=== PATIENT | female | born 1970 ===

== ENCOUNTER 2025-03-15 09:16 | Emergency (ER) | payer MEDICAID, SELFPAY ==
[2025-03-15 09:17] VITALS: BP 138/71; PULSE 78; RESP 18; TEMP 36.8; O2SAT 97; BMI 34.2
--- NOTE | 2025-03-15 09:28 | ED.SKABFB ---
HPI - Skin/Abscess/Foreign Bdy General Chief complaint: Skin/Abscess/Foreign Body Stated complaint: Rash Time Seen by Provider: 03/15/25 09:27 History of Present Illness ED Provider: Crys oCrnell PA-C HPI narrative: Well-appearing 54-year-old female presenting to the emergency department today for evaluation of rash on her body that started greater than 12 hours ago. Patient is not certain what could have caused this but does report it pretty much starting in the same area of limbs and trunk at the same time. She denies any new environmental exposures and no new medications the last 30 days. At no point did patient develop any lip or tongue swelling, difficulty with breathing, shortness of breath, wheezing, GI distress, or appear to be flushing. She describes the rash is very pruritic sparing her face soles and palms of her feet and is not on the groin or buttock region. Every time she itches it the rash seems to get larger. She has never experienced anything like this before in the past. She has not tried to treat in any way either. She notices he is making it worse. Patient also arrives with her significant other who is being seen separately for a different rash pattern. Onset (ago): day(s) Tetanus up to date: yes Severity: mild Quality: pruritic Pain Consistency: intermittent Context: none Associated symptoms: denies other symptoms Treatments prior to arrival: none Related Data Allergies Allergy/AdvReac Type Severity Reaction Status Date / Time No Known Allergies Allergy Verified 03/15/25 09:20 Review of Systems Review of Systems: Yes all other systems are reviewed and are negative PMFSH Past Medical History Attestation statement: The following information was validated with the patient. Source: nursing notes reviewed Social History Social History Alcohol intake: current Alcohol intake frequency: holidays/special occasions only Alcohol type: hard liquor Smoked in Last 30 Days: No Use of substances other than those prescribed or required for medical reasons: No Advance Directives: No Advance Directives Information Provided: Yes Do you have a plan to hurt others: No Plan Patient : No Physical Exam Vital Signs: Vital Signs: Last Vital Signs Temp 98.3 F 03/15/25 09:52 Pulse 77 03/15/25 09:52 Resp 16 03/15/25 09:52 BP 132/89 03/15/25 09:52 Pulse Ox 95 03/15/25 09:52 O2 Del Method Room Air 03/15/25 09:52 BMI result Body Mass Index 34.2 Hive-like rash on patient's limb and lower abdominal region appearing in wheals different sizes well-demarcated irregular borders no pustules vesicles red streaking or tenderness, spares her back buttock palms or soles of the feet as well as her face and scalp Const: General: cooperative, healthy appearing, comfortable, no acute distress, well developed, alert, awake and Physically active Nutritional Appearance: obese Orientation/consciousness: patient oriented x3 Limitations: no limitations HEENT: Head: Yes normal to inspection Ears: hearing grossly normal bilaterally, TM's normal bilaterally and mastoids normal General nose exam: Normal external nose present, Normal nares present, No nasal polyps present and Normal nasal mucous membranes and turbinates present Face and sinus: Yes normal facial exam Mouth: Normal oral and palatal mucosa present, lip normal, tongue normal, Normal salivary glands and ducts present, oropharynx normal and moist mucous membranes Teeth and gingiva: dentition normal Throat: Yes posterior oropharynx normal, Yes tonsils normal and Yes uvula midline Eyes: General: appearance normal, both eyes and all related structures Alignment and Position: alignment normal Periorbital: periorbital findings normal Eyelids: Yes eyelids normal Conjunctivae: conjunctivae normal Sclerae: sclerae normal Corneas: corneas normal EOM: EOMs intact bilaterally Neck: Neck: Yes normal visual inspection, Yes full ROM and Yes no lymphadenopathy Lymphatic: no lymphadenopathy noted Resp: Effort & Inspection: normal respiratory effort and able to speak in complete sentences Auscultation: clear to auscultation bilaterally Cardio: Jugular venous distension: no JVD Rate: regular rate Rhythm: regular rhythm Heart sounds: S1 normal heart sound present and S2 normal heart sound present Peripheral pulses: Peripheral pulses 2+ throughout GI: Inspection: Yes normal to inspection Auscultation: normal bowel sounds Rectal Exam - Female: deferred Neuro: General: patient oriented x3 Medical Decision Making Medical Decision Making MDM Narrative: Well-appearing 52-year-old female presenting today for 1 day of diffuse urticaria. Pt does not know of any new agents that they could have contacted through? clothes/other contaminants or through ingestion with medication/food products. Negative for respiratory symptoms such as wheezing, SOB/respiratory distress Negative for cardiovascular signs such as hypotension Negative for GI symptoms such as nausea and diarrhea Low concern for cellulitis. Not anaphylactic. Unlikely drug reaction, toxic shock syndrome, contact dermatitis. PO prednisone, EPI IM and Pred/benadryl IM not indicated. Discussed disease process therapeutic interventions of you regarding itself as antihistamines have been proven to be first-line for this she was given Benadryl while here and had been advised to continue this at home DC home with return precautions. Recommended antihistamines 3x a day until its been 24 hours with no rash. Patient was d/c to home stable. Return precautions discussed patient was discharged home stable Differential Diagnosis Differential Diagnoses: The differential diagnosis associated with the presentation includes see MDM Admission/Observation Patient would have been admitted to the hospital had her work up had any findings where hospital admission was appropriate and her clinical presentation warranted hospital admission. Independent Historian Clinical information obtained from an independent historian. History obtained from or confirmed by: Other (significant other) Prescription Management would have considered PO prednisone had this been anaphylaxis, contact dermatitis or angioedema Chronic Conditions Patient?s care impacted by: Other (obesity) Discharge Plan Discharge Clinical Impression: Urticaria Patient Disposition: Home, Self-Care Instructions: Urticaria (ED) Additional Instructions: You were seen in the emergency department today for a rash on your body. This is most consistent with a rash eruption known as Urticaria. You were given a dose of Benadryl while here it is recommended to take this 2 to 3 times a day until it has been 24 hours but no hives see below for additional details. If Benadryl is too sedating or drowsy for you you can do a nondrowsy antihistamine such as Claritin Zyrtec Vesna or Xyzal and in the morning and afternoon and reserve Benadryl for night if needed. Significant sedation and impairment of performance (eg, fine motor skills, driving skills, and reaction times) occur in more than 20 percent of patients. Anticholinergic side effects include dry mouth, diplopia, blurred vision, urinary retention, or vaginal dryness. This is most prominent in Benadryl. Benadryl (Diphenhydramine): Adults and Children 12 years and older: 25 to 50 mg every 4 to 6 hours as needed. Cetirizine (Zyrtec): Adults and Children 12 years and older: 10 to 20 mg twice daily as needed Claritin (loratidine) Adults and children 6 years and older: 10 -20 mg once daily as needed ( twice daily in adults if needed) Vesna (fexofedadine) Adults and Children ages 12 and older: 180 mg daily as needed (adults may be twice a day) ?Urticaria? is the medical term for ?hives?. Hives are patches of skin that are usually very itchy. The patches look puffy or raised compared with the rest of the skin. Hives might look reddish in color on light-colored skin. The color changes can be hard to see on darker skin. Hives can happen because of an allergy or when the body's immune system is activated for another reason. In most cases, hives come and go within a few hours. But they can show up again and again in some people. Some people who get hives also get a condition called angioedema. Angioedema is puffiness or swelling. It usually happens in the face, eyelids, ears, mouth, hands, feet, or genitals. Why did I get hives? If you just got hives for the first time, you might have a new allergy to something. People can get hives because of allergies to: ? Medicines, such as antibiotics or aspirinhttps://www.[employer]/contents/qrhkqwt-vqmprhz-mmat-information?search=benadryl%20dosing%20pediatric&zzsrvHnr=23998&source=see_link ? Foods, such as eggs, nuts, fish, or shellfish ? Something they touched, such as a plant, animal saliva, or latex ? Insect stings If your hives are caused by an allergy, you need to avoid whatever you are allergic to. You might not need treatment. Hives usually go away in a few days or weeks, even if you do not get treated. If you do, the first step is to figure out if anything triggered the hives. If so, you need to avoid that trigger. Hives can also be caused or triggered by infections, such as with a virus or bacteria. In this case, the hives happen because your immune system was activated to fight the infection. Hives can appear days or weeks after an infection. In some cases, you might remember being sick recently. But hives can also happen with mild infections that you might not have noticed. Hives of this type usually only last a few days. There are also physical triggers for hives, such as: ? Having cold air, water, or sun on the skin ? Exercise ? Having something press or vibrate against the skin ? Changes in body temperature (such as when you cool down after a hot shower or a work out) It is often not possible to tell what triggered hives. In patients with mild symptoms of new-onset urticaria, we suggest treatment with a nonsedating H1 antihistamine alone. Examples examples of H1 antihistamines include cetirizine (Zyrtec), loratidine (Claritin)? fexofenadine (Vesna), and diphenhydramine (Benadryl). Some patients may require higher than standard doses (eg, cetirizinehttps://www.[employer]/contents/upzxabgjbe-auvp-cswxrnbozaj?search=benadryl%20dosing%20pediatric&elfigXxo=9896&source=see_link 10 mg twice daily). In patients at low risk of complications from anticholinergic side effects (ie, healthy adults), use of a sedating H1 antihistamine at bedtime and a non-sedating H1 antihistamine during the day is a reasonable alternative. People may experience drowsiness at these higher doses. Caution is therefore warranted until effects upon the individual are understood. The higher doses may have better efficacy in some adults, although this has not been conclusively demonstrated. As you have no evidence of angioedema otherwise known as lip or tongue swelling or anaphylaxis life-threatening allergic reaction oral steroids have not been proven to shorten the course of treatment or a make any significant difference therefore deferred. Two-thirds of cases of urticaria (with or without angioedema) prove to be self-limited (not requiring intervention or treatment), resolving in days to a few weeks. Urticarial outbreaks that continue to occur after six weeks are classified as chronic. Patients with difficult to control symptoms that are persistent can be referred to an allergy or neuro psych sales specialist (if you require insurance referral, this unfortunately can only be placed by your primary care provider). Call for emergency help right away call if you suddenly get hives or swelling and also have any of these symptoms: ? Trouble breathing, a hoarse voice, or wheezing (hearing a whistling sound when you breathe) ? Swelling, especially in the mouth or throat ? Throat tightness ? Feeling dizzy or nearly fainting Stand Alone Forms: Work/School Release Print Language: Hebrew
[2025-03-15 09:52] VITALS: BP 132/89; PULSE 77; RESP 16; TEMP 36.8; O2SAT 95
--- NOTE | 2025-03-15 09:54 | PC.NURSE ---
Patient presents to ED c/o red rash on arms, torso, low back, and upper thighs. Rash is red and warm, burning pain rated 2/10. Patient denies SOB. Rash started last night when patient was at home. Patient denies using new medications, soaps, and lotions. NKA. Patient denies taking any OTC medication for relief. VSS and up to date. Provider in to see patient. Plan of care on going.
[2025-03-15 10:53] VITALS: BP 132/89; PULSE 77; RESP 16; TEMP 36.8; O2SAT 95
== END 2025-03-15 10:53 | disposition home or self-care (01) ==
PROVIDERS: Emergency Provider Emergency Medicine Emergency Medical Services
DX: L50.0 Allergic urticaria (principal)
CPT/HCPCS: 99283; 99284

== ENCOUNTER 2025-06-06 22:07 | Emergency (ER) | payer MEDICAID, SELFPAY ==
[2025-06-06 22:18] VITALS: BP 161/90; PULSE 71; RESP 16; TEMP 36.8; O2SAT 95; BMI 38.4
[2025-06-06 23:21] LABS: MANUAL DIFF FLAG NO
[2025-06-06 23:22] LABS: Hematocrit 36.9 % (37.0-47.0); Mean Corpuscular Volume 97.4 fL (80.0-98.0); NRBC Pct Auto 0.0 /100WBC (0.0-0.2); Red Blood Count 3.79 X10*6/uL (4.20-5.50); White Blood Count 5.7 X10*3/uL (4.8-10.8)
[2025-06-06 23:36] LABS: Alanine Aminotransferase 26 U/L (0-31); Albumin Level 4.7 g/dL (3.5-5.0); Alkaline Phosphatase 52 U/L (39-117); Anion Gap 8 (12-20); Aspartate Amino Transferase 63 U/L (5-31); Blood Urea Nitrogen 11 mg/dL (9-16); Calcium 9.2 mg/dL (8.4-10.2); Carbon Dioxide 39 mmol/L (22-29); Chloride 96 mmol/L (96-108); Creatinine Clr Calc Pharmacy 62.1; Estimated Glomerular Filt Rate 39; Potassium 3.8 mmol/L (3.3-5.1); Sodium 139 mmol/L (135-145); Total Protein 7.7 g/dL (6.5-8.0)
--- NOTE | 2025-06-07 00:24 | ED.FEMALEGU ---
HPI - Female Genitourinary General Chief complaint: Urogenital-Female Stated complaint: 1 month of lowback pain Time Seen by Provider: 06/07/25 00:10 Source: patient Mode of arrival: ambulatory Limitations: no limitations History of Present Illness ED Provider: Dr. Deneen Cornejo HPI Narrative: Patient comes to the emergency room complaining of bilateral lower back pain, worse on the left side of the back radiating towards the left leg. Patient states that it has been going on for about a week. Patient denies any injuries. 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 When patient arrived to triage, she said that she had urinary incontinence. However, when I spoke to the patient, she denies incontinence, states that she has burning and frequency, and she had an episode that she could not get quick enough to the bathroom because of the back pain, but this was not a true episode of incontinence. Patient denies IV drug use Related Data Previous Rx's ?Medication ?Instructions ?Recorded oxycodone 5 mg tablet 5 mg PO Q8H PRN pain #10 tabs 06/07/25 polyethylene glycol 3350 17 17 g PO DAILY PRN laxative effect 06/07/25 gram/dose oral powder (Miralax) #238 grams Allergies Allergy/AdvReac Type Severity Reaction Status Date / Time No Known Allergies Allergy Verified 06/06/25 22:21 Review of Systems Review of Systems: Constitutional : No Weight loss, No Fever, No Chills, No Night Sweats, No Fatigue, No Malaise ENT/Mouth : No Hearing loss, No Ear Pain, No Nasal Congestion, No Sinus Pain, No Hoarseness, No sore throat, No Rhinorrhea, No Swallowing Difficulty Eyes: No Eye Pain, No Swelling, No Redness, No Foreign Body, No Discharge, No Vision Changes Cardiovascular : No Chest Pain, No SOB, No Dyspnea on Exertion, No Orthopnea, No Edema, No Palpitations Respiratory : No Cough, No Sputum, No Wheezing, No Smoke Exposure, No Dyspnea Gastrointestinal : No Nausea, No Vomiting, No Diarrhea, No Constipation, No abdominal Pain, No Hematochezia, No Melena Genitourinary : Complaining of urinary frequency and urgency, no hematuria, no flank pain No Urinary Incontinence, No Urgency, No Urinary Flow Changes, No Hesitancy Musculoskeletal : Complaining of bilateral back pain with a shooting pain running down the left leg., No Myalgias, No Joint Swelling Skin : No Skin Lesions, No rash Neuro : No Weakness, No Numbness, No Paresthesias, No Loss of Consciousness, No Dizziness, No Headache Psych : No Anxiety/Panic, No Depression, No SI/HI/AH/VH, No Social Issues, Heme/Lymph: No Bruising, No Bleeding,No Lymphadenopathy Endocrine : No Polyuria, No Polydipsia, No Temperature Intolerance ON LICENSE OF [facility] Past Medical History Medical History (Updated 06/07/25 @ 00:42 by Deneen Cornejo MD) Sciatica Social History Social History Alcohol intake: current Alcohol intake frequency: holidays/special occasions only Alcohol type: hard liquor Do you have a plan to hurt others: No Plan Physical Exam Exam: Exam: Appearance: Alert. Oriented X3. No acute distress. Eyes: Pupils equal, round and reactive to light. ENT: Pharynx normal. Neck: Normal inspection. Neck supple. No lymph nodes noted. No crepitus CVS: Normal heart rate and rhythm. Pulses normal. Normal S1 and S2 Respiratory: No respiratory distress. Breath sounds normal. No Wheezing. No rales Abdomen: Soft and nontender. No rigidity. No distention. Back: Pain to palpation in the bilateral aspects of the bag. No C-spine/thoracic/lumbar spine tenderness. Patient is able to walk with fairly normal gait, good truncal stability, normal bilateral lower extremity strength. Positive straight leg raise test on the left Skin: Skin warm and dry. Normal skin color. Normal skin turgor. Extremities: No lower extremity edema. No Lacerations. No Rash Neuro: Oriented X 3. No motor deficit. No sensory deficit. Moving all extremities. No slurred speech. CN 2 through 12 grossly intact Psych: calm, cooperative, normal affect Vital Signs: Vital Signs: Last Vital Signs Temp 97.6 F 06/07/25 00:25 Pulse 70 06/07/25 00:25 Resp 20 06/07/25 00:25 BP 141/99 H 06/07/25 00:25 Pulse Ox 96 06/07/25 00:25 O2 Del Method Room Air 06/07/25 00:25 BMI result Body Mass Index 38.4 Course Course Course Narrative: I discussed with the patient that based on physical exam, she likely has sciatica versus herniated discs. Patient states that many years ago she was diagnosed with herniated discs. Patient was given a dose of IM Decadron and a 2nd IM injection of Dilaudid I discussed with the patient that this is not a cure, this is just pain management. Overall, she will need physical therapy. Urinalysis pending Medications Administered Discontinued Medications Generic Name Dose Route Start Last Admin Trade Name Frederic PRN Reason Stop Dose Admin Dexamethasone Sodium Phosphate 4 mg 06/07/25 00:23 06/07/25 00:59 Dexamethasone Sod Phosphate 4 Mg/Ml Vial IM 06/07/25 00:24 4 mg ONCE ONE Administration Hydromorphone HCl 1 mg 06/07/25 00:23 06/07/25 00:59 Hydromorphone Hcl 1 Mg/Ml Syringe IM 06/07/25 00:24 1 mg ONCE ONE Administration Protocol Medical Decision Making Medical Decision Making [facility] Narrative: My interpretation of labs: No significant abnormality being patient's hematology or chemistry Urinalysis shows a small amount of leukocyte esterase and +1 bacteria. Large amount of squamous epithelial cells. However, given that the patient has urinary frequency, we will treat we asked UTI. Patient was given the 1st dose of Macrobid here in the emergency room After the IM pain medication, patient feels much better. Patient understands that she will need to follow-up with the primary care physician as she will need a referral for physical therapy. Cauda equina is not suspected. Patient has no urinary incontinence, normal strength in both extremities Differential Diagnosis Differential Diagnoses: The differential diagnosis associated with the presentation includes (Sciatica, musculoskeletal pain, herniated disc) Admission/Observation Consideration of admission/observation: Escalation of care including admission/observation considered (Given patient's arrival and overall discomfort, observation was considered) Lab Data [facility] Lab Attestation statement: I reviewed the patient's lab results. 06/06/25 23:16 06/06/25 23:16 Labs: Lab Results 06/06/25 06/07/25 Range/Units 23:16 00:24 WBC 5.7 (4.8-10.8) X10*3/uL RBC 3.79 L (4.20-5.50) X10*6/uL Hgb 12.1 (12.0-16.0) g/dl Hct 36.9 L (37.0-47.0) % MCV 97.4 (80.0-98.0) fL MCH 31.9 (27.0-33.0) pg MCHC 32.8 (31.0-35.0) g/dl RDW 13.8 (11.0-16.0) % Plt Count 252 (160-400) X10*3/uL MPV 10.4 (9.4-12.3) fL Immature Gran % (Auto) 0.2 (0.0-0.4) % Neut % (Auto) 62.0 (45-73) % Lymph % (Auto) 29.2 (20-40) % Bennett % (Auto) 3.7 (2-11) % Eos % (Auto) 4.4 H (0-4) % Baso % (Auto) 0.5 (0-2) % Lymph # (Auto) 1.7 (1.2-4.9) X10*3/uL Bennett # (Auto) 0.2 (0.1-1.2) X10*3/uL Eos # (Auto) 0.3 (0.0-0.4) X10*3/uL Baso # (Auto) 0.0 (0.0-0.2) X10*3/uL Abs Immat Gran (auto) 0.01 (0.00-0.03) X10*3/uL Absolute Neuts (auto) 3.5 (2.0-8.3) x10*3/uL Absolute Nucleated RBC 0.000 (0.0-0.012) X10*3/uL Nucleated RBC % (auto) 0.0 (0.0-0.2) /100WBC Sodium 139 (135-145) mmol/L Potassium 3.8 (3.3-5.1) mmol/L Chloride 96 (96-108) mmol/L Carbon Dioxide 39 H (22-29) mmol/L Anion Gap 8 L (12-20) BUN 11 (9-16) mg/dL Creatinine 1.41 H (0.5-1.4) mg/dL Estim Creat Clear Calc 62.1 Estimated GFR 39 Random Glucose 102 (60-115) mg/dL Calcium 9.2 (8.4-10.2) mg/dL Total Bilirubin 0.4 (0.0-1.0) mg/dL AST 63 H (5-31) U/L ALT 26 (0-31) U/L Alkaline Phosphatase 52 (39-117) U/L Total Protein 7.7 (6.5-8.0) g/dL Albumin 4.7 (3.5-5.0) g/dL Urine Color Yellow Urine Appearance Clear Urine pH 6.0 (5.0-9.0) Ur Specific [place] 1.025 (1.005-1.025) Urine Protein 300 (3+) H (Neg-Trace) mg/dL Urine Glucose (UA) Negative (Negative) mg/dL Urine Ketones Trace (Negative) mg/dL Urine Blood Negative (Negative) Urine Nitrite Negative (Negative) Ur Leukocyte Esterase Small (1+) H (Negative) Urine RBC 0-2 (0-2) /HPF Urine WBC 11-20 H (0-5) /HPF Ur Squamous Epith Cells 11-20 (0-2) /HPF Urine Bacteria 1+ (None Seen) Hyaline Casts 0-2 (0-2) /LPF Tests considered The following testing was considered but not selected: Considered ordering a CT scan. However, patient has no symptoms concerning for cauda equina or spinal injury Critical Care Time Critical Care Time Critical Care Time: Yes Total Critical Care Time: 35 Attestation: I have personally provided critical care time. Time includes review of lab data, radiology results, discussion with consultants, and monitoring for potential decompensation. Intervention performed as documented. Discharge Plan Discharge Clinical Impression: Sciatica Patient Disposition: Home, Self-Care Instructions: Sciatica (ED) Additional Instructions: Please follow-up with your primary care physician tomorrow. If you have any worsening or new symptoms, please return to the emergency room or call 911 Prescriptions: New oxycodone 5 mg tablet 5 mg PO Q8H PRN (Reason: pain) Qty: 10 0RF Rx Instructions: Partial Fill upon patient request. polyethylene glycol 3350 [Miralax] 17 gram/dose powder 17 g PO DAILY PRN (Reason: laxative effect) Qty: 238 0RF Print Language: Occitan
[2025-06-07 00:25] VITALS: BP 141/99; PULSE 70; RESP 20; TEMP 36.4; O2SAT 96
--- NOTE | 2025-06-07 01:04 | PC.NURSE ---
pt medicated per mar.
[2025-06-07 02:01] VITALS: BP 141/99; PULSE 70; RESP 20; TEMP 36.4; O2SAT 96
--- NOTE | 2025-06-07 02:06 | PC.NURSE ---
reviewed discharge instructions with pt. pt verbalized understanding, no sign of distress.
== END 2025-06-07 02:06 | disposition home or self-care (01) ==
PROVIDERS: Emergency Provider Emergency Medicine
DX: M54.42 Lumbago with sciatica, left side (principal); M54.41 Lumbago with sciatica, right side; M79.605 Pain in left leg; Z79.899 Other long term (current) drug therapy
CPT/HCPCS: 36415; 80053; 81001; 85025; 87086; 96372; 99284; J1100; J1171

== ENCOUNTER 2025-08-01 23:32 | Emergency (ER) | payer MEDICAID, SELFPAY ==
--- NOTE | 2025-08-01 | ECG_ITS ---
Test Reason : PALPITATIONS Blood Pressure : */* mmHG Vent. Rate : 82 BPM Atrial Rate : 82 BPM P-R Int : 154 ms QRS Dur : 70 ms QT Int : 312 ms P-R-T Axes : 65 15 45 degrees QTcB Int : 364 ms Normal sinus rhythm Low voltage QRS Nonspecific T wave abnormality Abnormal ECG No previous ECGs available Referred By: Generic ED Physician Electronically Signed By: ASHWINI DECKER
[2025-08-01 23:38] VITALS: BP 142/86; PULSE 78; RESP 20; TEMP 36.7; O2SAT 98; BMI 35.7
[2025-08-01 23:58] LABS: MANUAL DIFF FLAG NO
[2025-08-02 00:01] LABS: Hematocrit 38.4 % (37.0-47.0); Hemoglobin 12.2 g/dl (12.0-16.0); Imm Gran Abs Auto 0.01 X10*3/uL (0.00-0.03); Imm Gran Pct Auto 0.1 % (0.0-0.4); Lymphocytes Absolute Auto 2.8 X10*3/uL (1.2-4.9); Mean Corpuscular HGB Conc 31.8 g/dl (31.0-35.0); Mean Corpuscular Hemoglobin 31.5 pg (27.0-33.0); Mean Corpuscular Volume 99.2 fL (80.0-98.0); NRBC Abs Auto 0.000 X10*3/uL (0.0-0.012); NRBC Pct Auto 0.0 /100WBC (0.0-0.2); Platelet Count 276 X10*3/uL (160-400); Red Blood Count 3.87 X10*6/uL (4.20-5.50); White Blood Count 6.9 X10*3/uL (4.8-10.8)
[2025-08-02 00:14] LABS: Alanine Aminotransferase 23 U/L (0-31); Albumin Level 4.6 g/dL (3.5-5.0); Alkaline Phosphatase 51 U/L (39-117); Anion Gap 13 (12-20); Aspartate Amino Transferase 70 U/L (5-31); Blood Urea Nitrogen 18 mg/dL (9-16); Calcium 9.8 mg/dL (8.4-10.2); Carbon Dioxide 32 mmol/L (22-29); Chloride 99 mmol/L (96-108); Creatinine Clr Calc Pharmacy 72.5; Estimated Glomerular Filt Rate 49; Potassium 4.1 mmol/L (3.3-5.1); Sodium 140 mmol/L (135-145); Total Protein 7.9 g/dL (6.5-8.0)
[2025-08-02 00:44] VITALS: BP 140/104; PULSE 78; RESP 16; TEMP 36.7; O2SAT 96
[2025-08-02 01:31] LABS: Resp Syncy Virus RNA Qual PCR NEGATIVE (Negative); SARS COV2 PCR INHOUSE NEGATIVE (Negative)
[2025-08-02 02:05] VITALS: RESP 18
[2025-08-02 02:08] VITALS: BP 151/97; RESP 18
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
[2025-08-02 04:23] VITALS: BP 125/80; PULSE 67; RESP 18; TEMP 36.6; O2SAT 94
[2025-08-02 05:46] LABS: Free T4 (Free Thyroxine) < 0.42 ng/dL (0.71-1.85)
[2025-08-02 06:38] VITALS: BP 128/90; PULSE 78; RESP 15; TEMP 36.7; O2SAT 98
== END 2025-08-02 06:39 | disposition home or self-care (01) ==
PROVIDERS: Physician Assistant; Emergency Provider Emergency Medicine
DX: B34.9 Viral infection, unspecified (principal); E03.9 Hypothyroidism, unspecified
CPT/HCPCS: 36415; 80053; 84439; 84443; 85025; 87637; 93005; 96361; 96374; 96375; 99284; 99285; J1885

== ENCOUNTER → 2025-08-01 23:49 | Outpatient (BNV) | payer MEDICAID, SELFPAY | PROVIDERS: Emergency Provider Emergency Medicine; Visit Provider Internal Medicine | DX: R94.31 Abnormal electrocardiogram [ECG] [EKG] (principal); R00.2 Palpitations | CPT/HCPCS: 93010 ==

== ENCOUNTER 2025-08-27 14:30 | Emergency (ER) | payer MEDICAID, SELFPAY ==
--- OUTSIDE RECORDS SUMMARY | 2025-08-24 14:15 | XMS_ITS | Encounter Summary ---
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 Name Role Phone Unavailable Primary Care Provider Unavailabl e Reason for Referral * (Routine) - Authorized Specialty Diagnoses / Procedures Referred By Contac t Referred To Contact Diagnoses Encounter for immunization Procedures FLU VACCINE TRIVALENT [phone] (Fluarix) 19 yrs + Fatmata Kelley MD [address] [place] [phone] Phone: tel: fax: Referral ID Status Reason Start Date Expiration Date V isits Requested Visits Authorized [id number] Authorized 08/24/2025 08/24/2026 1 1 * (Routine) - Authorized Specialty Diagnoses / Procedures Referred By Contac t Referred To Contact Diagnoses Encounter for immunization Procedures PCV-20 VACCINE 6 wks + Fatmata Kelley MD [address] [place] [address] Phone: tel: fax: Referral ID Status Reason Start Date Expiration Date V isits Requested Visits Authorized [id number] Authorized 08/24/2025 08/24/2026 1 1 * Consultation (Routine) - Authorized Specialty Diagnoses / Procedures Referred By Contac t Referred To Contact Optometry Diagnoses Blurred vision Fatmata Kelley MD [address] [place] [address] Phone: tel: fax: [facility] [address] [place] [address] Phone: tel: fax: Referral ID Status Reason Start Date Expiration Date Visits Requested Visits Authorized [id number] Authorized Specialty Services Required 5 08/24/2026 1 1 Encounter Details Date Type Department Care Team (Latest Contact Info) Description 08/24/2025 2:15 PM EST Office Visit [facility] [address] [place] [phone] Fatmata Kelley MD [address] [place] [address] Acquired hypothyroidism (Primary Dx); Dietary counseling; Exercise counseling; Primary hypertension; Moderate persistent asthma without complication; CARMELITA (obstructive sleep apnea); Depression with anxiety; Primary insomnia; Blurred vision; Allergic reaction, initial encounter; Encounter for immunization Social History Tobacco Use Types Packs/Day Years Used Date Smoking Tobacco: Former Cigarettes Tobacco Cessation:Counseling Given: Not Answered Depression Answer Date Recorded Patient Health Questionnaire-9 Score 20 08/24/2025 Patient Health Questionnaire-9 Score 20 08/24/2025 Last PHQ-9: Questionnaire Data Not on file 1 10/25/2024 Housing Stability Answer Date Recorded What is your housing situation today? I do not have housing (Staying with others, in a hotel, in a custodial, living outside on the street, on a beach, in a car, or in a park 08/24/[address] you li ve. Do you have problems with any of the following? I am not sure 08/24/2025 Food Insecurity Answer Date Recorded Within the past 12 months, y ou worried that your food would run out before you got money to buy more: Not on file 2024 Within the past 12 months,th e food you bought just didn't last and you didn't have enough money to get more: Sometimes True 08/24/2025 Transportation Answer Date Recorded In the past 12 months, has l ack of transportation kept you from medical appts, meetings, work or from getting things needed for daily living? Yes, it has kept me from medical appointments or getting medications. 08/24/2025 Utilities Answer Date Recorded In the past 12 months, has t he electric, gas, oil or water company threatened to shut off services in your home? I am not sure 08/24/2025 Depression Answer Date Recorded Patient Health Questionnaire-2 Score 6 08/24/2025 Internet Access Answer Date Recorded Internet Access Q1 No 08/24/2025 Internet Access Q2 I cannot afford it 08/24/2025 Comments Unknown Sex and Gender Information Value Date Recorded Sex Assigned at Female 08/15/2025 10:17 AM EST Legal Sex Female 10:57 AM EST Gender Identity Female 08/15/2025 10:17 AM EST Sexual Orientation Don't know 08/17/2025 10 :29 AM EST documented as of this encounter Last Filed Vital Signs Vital Sign Reading Time Taken Comments Blood Pressure 142/92 08/24/2025 2:12 PM EST Pulse 80 08/24/2025 2:04 PM EST Temperature 33.3 C (92 F) 08/24/2025 2:04 PM EST Respiratory Rate 15 08/24/2025 2:04 PM EST Oxygen Saturation 95% 08/24/2025 2:04 PM EST Inhaled Oxygen Concentration - - Weight 117 kg (259 lb) 08/24/2025 2:04 PM EST Height 172.7 cm (5' 8 ) 08/24/2025 2:04 PM EST Body Mass Index 39.38 08/24/2025 2:04 PM EST documented in this encounter Functional Status * Over the past 2 weeks, how often have you been bothered by any of the following problems? Question Answer Date of Assessment Author Patient Health Questionnaire-2 Score 6 08/24/2025 3:18 PM EST Haroldo Chan LM[facility] * Little interest or pleasure in doing things Answer Date of Assessment Author Nearly every day 08/24/2025 3:18 PM EST Haroldo Larry LM[facility] * Feeling down, depressed, or hopeless Answer Date of Assessment Author Nearly every day 08/24/2025 3:18 PM EST Haroldo Larry LM[facility] * Trouble falling or staying asleep, or sleeping too much Answer Date of Assessment Author Nearly every day 08/24/2025 3:18 PM EST Haroldo Larry LM[facility] * Feeling tired or having little energy Answer Date of Assessment Author Nearly every day 08/24/2025 3:18 PM EST Haroldo Larry LM[facility] * Poor appetite or overeating Answer Date of Assessment Author Nearly every day 08/24/2025 3:18 PM EST Haroldo Larry LM[facility] * Feeling bad about yourself - or that you are a failure or have let yourself or your family down Answer Date of Assessment Author Several days 08/24/2025 3:18 PM EST Haroldo Bravo LM[facility] * Trouble concentrating on things, such as reading the newspaper or watching television Answer Date of Assessment Author More than half the days 08/24/2025 3:18 PM EST Haroldo Mejia LM[facility] * Moving or speaking so slowly that other people could have noticed? Or the opposite - being so fidgety or restless that you have been moving around a lot more than usual. Answer Date of Assessment Author More than half the days 08/24/2025 3:18 PM EST Haroldo Mejia LM[facility] * Thoughts that you would be better off or hurting yourself in some way Answer Date of Assessment Author Not at all 08/24/2025 3:18 PM Haroldo Paz LM[facility] * Patient Health Questionnaire-9 Score Answer Date of Assessment Author 20 08/24/2025 3:18 PM Haroldo Paz LM[facility] * Over the last 2 weeks, how often have you been bothered by any of the following problems? Question Answer Date of Assessment Author Feeling nervous, anxious, or on edge 3 08/24/2025 3:18 PM Haroldo Hidalgo LMHC Not being able to stop or control worrying 3 08/24/2025 3:18 PM Haroldo Hidalgo LM[facility] Worrying too much about different things 3 08/24/2025 3:18 PM Haroldo Hidalgo LM[facility] Trouble relaxing 2 08/24/2025 3:18 PM EST Haroldo Mejia LMHC Being so restless that it is hard to sit still 3 08/24/2025 3:18 PM Haroldo Hidalgo LMHC Becoming easily annoyed or irritable 3 08/24/2025 3:18 PM Haroldo Hidalgo LM[facility] Feeling afraid as if something awful might happen 3 08/24/2025 3:18 PM Haroldo Carrasco LMHC COLLETTE-7 Total Score 20 08/24/2025 3:18 PM Haroldo Hidalgo LM[facility] * How difficult have these problems made it for you to do your work, take care of things at home, or get along with other people? Answer Date of Assessment Author Somewhat difficult 08/24/2025 3:18 PM Haroldo Colby LM[facility] documented as of this encounter Progress Notes * Fatmata Raza MD - 08/24/2025 2:15 PM EST SUBJECTIVE: Serene Blackwood is a 55 y.o. year old female who presents for New patient . Occupation:unemployed, she applied to [employer] Lives with:homeless, she is stating with friends and family, takes turns - EtOH on holidays - smoking cigarettes quit smoking about a year ago - recreational drug use smokes marihuana once a month, denies other drugs Diet:regular Exercise:sedentary LMP:08/03/25 regular Surgeries/Hospitalizations:cholecystectomy, , left shoulder/left knee/left ankle surgery, neck surgery and right shoulder surgery Colonoscopy: done 2 years ago in [place] was told next one in 5 years Mammogram is up to date she will be due on 03/10 PMHx:asthma, thyroid disease, CARMELITA not on CPAP, hypertension, chronic lower back pain, depression with anxiety Medications: levothyroxine 200mcg,, albuterol,advir, amlodipin 10mg FMHx: father DM, mother hypertension Immunizations: PCV 20 and flu vaccine Serene Blackwood, 55 years Back pain - Prior work-related back injury; stopped working due to low back pain - Persistent low back pain Hypertension - History of high blood pressure - Off antihypertensive medication prior to visit Asthma - History of asthma - Previously used albuterol (blue) and a daily inhaler; off inhalers prior to visit Hypothyroidism - History of thyroid disease - Previously took levothyroxine 200 mcg; off medication prior to visit Sleep apnea - History of sleep apnea - Previously used CPAP; reports it was taken away Depression/anxiety - Reports depression and anxiety - Denies current psychiatric medication use prior to visit - Reports bereavements contributing to symptoms Dermatologic symptoms - Recurrent pruritic rash with ???scabs?? after scratching; states ???allergic to something,?? trigger unclear - No current antipruritic treatment prior to visit Gynecologic - Regular menses; last menstrual period August 03, 2025 Prior procedures and screening relevant to current concerns - Cholecystectomy; section; surgeries on left knee, left ankle, and neck (no metal implanted) - Colonoscopy ~2 years ago in [place]; advised next in 5 years - Mammogram due this year (2024) Insomnia -Patient reports difficulty falling sleep Social History Social History Narrative Not on file Problem List[1] Hypothyroidism Primary hypertension Moderate persistent asthma without complication CARMELITA (obstructive sleep apnea) Depression with anxiety Primary insomnia Blurred vision Allergic reaction Family History[2] Review of Systems Constitutional: Negative. HENT: Negative. Respiratory: Negative. Cardiovascular: Negative. Musculoskeletal: Positive for arthralgias and back pain. Psychiatric/Behavioral: Positive for decreased concentration. The patient is nervous/anxious. OBJECTIVE: Vitals: 08/24/25 1404 08/24/25 1412 BP: (!) 140/110 (!) 142/92 BP Location: Left arm Patient Position: Sitting BP Cuff Size: Large adult Pulse: 80 Resp: 15 Temp: 92 ??F (33.3 ??C) TempSrc: Temporal SpO2: 95% Weight: 259 lb (117 kg) Height: 5' 8 (1.727 m) Physical Exam Constitutional: Appearance: Normal appearance. Cardiovascular: Rate and Rhythm: Normal rate and regular rhythm. Pulmonary: Effort: Pulmonary effort is normal. Breath sounds: Normal breath sounds. Abdominal: General: Abdomen is flat. Palpations: Abdomen is soft. Musculoskeletal: Right lower leg: No edema. Left lower leg: No edema. Neurological: Mental Status: She is alert. Follow Up: No follow-ups on file. Medications Ordered Prior to Encounter[3] Problem List Items Addressed This Visit Hypothyroidism - Primary Relevant Medications levothyroxine (Synthroid) 200 MCG tablet Other Relevant Orders CBC auto differential Comprehensive Metabolic Panel Hemoglobin A1c HIV-1/2 Antigen and Antibodies, Fourth Generation, with Reflexes Hepatitis C Antibody with Reflex to HCV, RNA, Quantitative, Real-Time PCR Lipid Panel, Standard Vitamin D, 25-Hydroxy, Total, Immunoassay TSH with Reflex to Free T4 Primary hypertension Relevant Medications amLODIPine (Norvasc) 10 MG tablet Other Relevant Orders CBC auto differential Comprehensive Metabolic Panel Hemoglobin A1c HIV-1/2 Antigen and Antibodies, Fourth Generation, with Reflexes Hepatitis C Antibody with Reflex to HCV, RNA, Quantitative, Real-Time PCR Lipid Panel, Standard Vitamin D, 25-Hydroxy, Total, Immunoassay TSH with Reflex to Free T4 Moderate persistent asthma without complication Relevant Medications albuterol 108 (90 Base) MCG/ACT inhaler fluticasone-salmeterol (Advair) 230-21 MCG/ACT inhaler loratadine (Claritin) 10 MG tablet CARMELITA (obstructive sleep apnea) Relevant Medications traZODone (Desyrel) 100 MG tablet Depression with anxiety Relevant Medications traZODone (Desyrel) 100 MG tablet Primary insomnia Relevant Medications traZODone (Desyrel) 100 MG tablet Blurred vision Relevant Orders Referral to Optometry Allergic reaction Relevant Medications loratadine (Claritin) 10 MG tablet Other Visit Diagnoses Dietary counseling Relevant Medications levothyroxine (Synthroid) 200 MCG tablet Exercise counseling Relevant Medications levothyroxine (Synthroid) 200 MCG tablet Acquired hypothyroidism: - Prescribed levothyroxine 200 mcg. Primary hypertension: - Hypertension noted due to lack of medication. - Prescribed amlodipine 10 mg. Recommended monitoring blood pressure. Moderate persistent asthma without complication: - Prescribed albuterol and Advair. Depression with anxiety: - Prescribed trazodone 100 mg at night. Referral to therapist. -N called today -I will f/u in about 2-4 weeks Primary insomnia: - Prescribed trazodone 100 mg at night. Blurred vision: - Ordered laboratory tests. Allergic reaction, initial encounter: - Allergic reaction with pruritus and rash noted. - Ordered laboratory tests to investigate the cause. This note was drafted using Ambient (AI) technology. The patient/patient's guardian has been informed and has consented to the use of this technology: Yes [1] Patient Active Problem List Diagnosis Hypothyroidism Primary hypertension Moderate persistent asthma without complication CARMELITA (obstructive sleep apnea) Depression with anxiety Primary insomnia Blurred vision Allergic reaction [2] No family history on file. [3] No current outpatient medications on file prior to visit. No current facility-administered medications on file prior to visit. documented in this encounter Plan of Treatment Upcoming Encounters Date Type Department Care Team (Late st Contact Info) Description 09/13/2025 2:45 PM EST Telemedicine [facility] [address] [place] [phone] Fatmata Kelley MD [address], [place] [phone] 10/20/2025 1:45 PM EST Procedure Visit [facility] [address] [place] [address] [phone] Fatmata Kelley MD [address] [place] [address] [phone] Scheduled Orders Name Type Priority Associated Diagnoses Orde r Schedule CBC auto differential Lab Routine Acquired hypothyroidism Primary hypertension Expected: 08/24/2025 (Approximate), Expires: 08/24/2026 Comprehensive Metabolic Panel Lab Routine Acquired hypothyroidism Primary hypertension Expected: 08/24/2025 (Approximate), Expires: 08/24/2026 Hemoglobin A1c Lab Routine Acquired hypothyroidism Primary hypertension Expected: 08/24/2025 (Approximate), Expires: 08/24/2026 HIV-1/2 Antigen and Antibodies, Fourth Generation, with Reflexes Lab Routine Acquired hypothyroidism Primary hypertension Expected: 08/24/2025 (Approximate), Expires: 08/24/2026 Hepatitis C Antibody with Reflex to HCV, RNA, Quantitative, Real-Time PCR Lab Routine Acquired hypothyroidism Primary hypertension Expected: 08/24/2025, Expires: 08/24/2026 Lipid Panel, Standard Lab Routine Acquired hypothyroidism Primary hypertension Expected: 08/24/2025 (Approximate), Expires: 08/24/2026 Vitamin D, 25-Hydroxy, Total, Immunoassay Lab Routine Acquired hypothyroidism Primary hypertension Expected: 08/24/2025 (Approximate), Expires: 08/24/2026 TSH with Reflex to Free T4 Lab Routine Acquired hypothyroidism Primary hypertension Expected: 08/24/2025 (Approximate), Expires: 08/24/2026 Scheduled Referrals Name Type Priority Associated Diagnoses Orde r Schedule Referral to Optometry Outpatient Referral Routine Blurred vision Expected: 08/24/2025 (Approximate), Expires: 08/24/2026 documented as of this encounter Visit Diagnoses Diagnosis Acquired hypothyroidism- Primary Unspecified hypothyroidism Dietary counseling Dietary surveillance and counseling Exercise counseling Primary hypertension Unspecified essential hypertension Moderate persistent asthma without complication CARMELITA (obstructive sleep apnea) Obstructive sleep apnea (adult) (pediatric) Depression with anxiety Dysthymic disorder Primary insomnia Persistent disorder of initiating or maintaining sleep Blurred vision Other specified visual disturbances Allergic reaction, initial encounter Encounter for immunization documented in this encounter Additional Health Concerns Assessment Noted Time PHQ-9 Depression Total Score: 20 025 2:47 PM EST documented as of this encounter
--- NOTE | ~2025-08-27 | CT_ITS ---
CLINICAL HISTORY: dizzy CT head without contrast Comparison: None provided Findings: No intra-axial mass, midline shift, hydrocephalus, or acute hemorrhage. No significant atrophy-like change or white matter disease. There is no sinus or mastoid fluid. The orbits are unremarkable. There is no acute fracture. IMPRESSION: 1. No acute intracranial findings. This document has been electronically signed by: Jeol Jha MD on 08/27/2025 22:26:36
--- NOTE | ~2025-08-27 | XR_ITS ---
CLINICAL HISTORY: cough 1 view chest x-ray. Comparison: None Findings: No consolidation or effusion. Cardiac and mediastinal contours appear unremarkable. Bones unremarkable. Impression: 1. No acute pulmonary disease. This document has been electronically signed by: Alfonso Deng MD on 08/27/2025 16:11:02
[2025-08-27 15:09] VITALS: BP 115/85; PULSE 80; RESP 18; TEMP 36.9; O2SAT 94; BMI 38.9
--- NOTE | 2025-08-27 15:10 | ED.NAVMDI ---
HPI - Nausea/Vomiting/Diarrhea General Chief complaint: Upper Respiratory Symptoms Stated complaint: dizziness, nausea, back pain Time Seen by Provider: 08/27/25 19:20 Related Data Previous Rx's ?Medication ?Instructions ?Recorded oxycodone 5 mg tablet 5 mg PO Q8H PRN pain #10 tabs 06/07/25 polyethylene glycol 3350 17 17 g PO DAILY PRN laxative effect 06/07/25 gram/dose oral powder (Miralax) #238 grams levothyroxine 200 mcg capsule 200 mcg PO DAILY #90 caps 08/02/25 cephalexin 500 mg capsule 500 mg PO TID 7 days #21 caps 08/28/25 Allergies Allergy/AdvReac Type Severity Reaction Status Date / Time No Known Allergies Allergy Verified 08/27/25 15:12 [facility] Past Medical History Medical History (Updated 08/29/25 @ 00:00 by Bernardo Truong) Sciatica Social History Social History Alcohol intake: never Substance Use Type: Marijuana Physical Exam Vital Signs: Vital Signs: Last Vital Signs Temp 98.2 F 08/28/25 01:57 Pulse 70 08/28/25 01:57 Resp 16 08/28/25 01:57 BP 142/77 H 08/28/25 01:57 Pulse Ox 100 08/28/25 01:57 O2 Del Method Room Air 08/28/25 01:57 BMI result Body Mass Index 38.9 Course Course Course Narrative: This is a RME preformed in triage by Crys Cornlel PA-C. Date: 08/27/2025, time 310 pm. Patient presents with headache, back ache, nausea, no vomiting, no diarrhea. Cough chest congestion. Sore throat two days ago. Hx of asthma, 2-3 rescue use in the last few days. Not unusual for her. Work UP:?viral swab, basic labs, CXR, EKG (dizziness lightheaded) Will defer full ROS and PE to treating provider. Patient will continued to be monitored in the interim. Medications Administered Discontinued Medications Generic Name Dose Route Start Last Admin Trade Name Freq PRN Reason Stop Dose Admin Sodium Chloride 1,000 mls @ 999 mls/hr 08/27/25 21:45 08/28/25 01:00 Ns IV 08/27/25 22:45 Infused .Q1H1M NORA Infusion Sodium Chloride 1,000 mls @ 999 mls/hr 08/27/25 21:45 08/28/25 01:00 Ns IV 08/27/25 22:45 Infused .Q1H1M NORA Infusion Medical Decision Making Medical Decision Making [facility] Narrative: Patient complaining of dizziness generalized malaise weakness. Back pain sore throat generalized malaise coughing. My interpretation patient's CT head was grossly negative no bleed. Patient's white count is 6. No significant shift. Patient's electrolytes showed a normal BUN and creatinine. LFTs are normal. Urine showed a question UTI with 4+ bacteria but also has 11-20 squamous cells. Will treat presumptively with Keflex. No previous culture noted. My interpretation patient's chest x-ray is grossly negative for pneumonia no pneumothorax. Patient's O2 sats 100% on room air ambulated well no distress heart rate is 70 given IV hydration in the emergency department will discharge home no flank pain no evidence for pyelo. Differential Diagnosis Differential Diagnoses: The differential diagnosis associated with the presentation includes Electrolyte disturbance COVID flu RSV pneumonia dehydration intracranial bleed Admission/Observation Consideration of admission/observation: Escalation of care including admission/observation considered Lab Data [facility] Lab Attestation statement: I reviewed the patient's lab results. 08/27/25 17:26 08/27/25 17:25 Labs: Lab Results 08/27/25 08/27/25 08/27/25 Range/Units 15:43 17:25 17:26 WBC 6.0 (4.8-10.8) X10*3/uL RBC 3.77 L (4.20-5.50) X10*6/uL Hgb 12.1 (12.0-16.0) g/dl Hct 37.2 (37.0-47.0) % MCV 98.7 H (80.0-98.0) fL MCH 32.1 (27.0-33.0) pg MCHC 32.5 (31.0-35.0) g/dl RDW 14.6 (11.0-16.0) % Plt Count 276 (160-400) X10*3/uL MPV 11.1 (9.4-12.3) fL Immature Gran % (Auto) 0.2 (0.0-0.4) % Neut % (Auto) 55.4 (45-73) % Lymph % (Auto) 33.9 (20-40) % [place] % (Auto) 4.7 (2-11) % Eos % (Auto) 5.0 H (0-4) % Baso % (Auto) 0.8 (0-2) % Lymph # (Auto) 2.0 (1.2-4.9) X10*3/uL [place] # (Auto) 0.3 (0.1-1.2) X10*3/uL Eos # (Auto) 0.3 (0.0-0.4) X10*3/uL Baso # (Auto) 0.1 (0.0-0.2) X10*3/uL Abs Immat Gran (auto) 0.01 (0.00-0.03) X10*3/uL Absolute Neuts (auto) 3.3 (2.0-8.3) x10*3/uL Absolute Nucleated RBC 0.000 (0.0-0.012) X10*3/uL Nucleated RBC % (auto) 0.0 (0.0-0.2) /100WBC Sodium 139 (135-145) mmol/L Potassium 4.3 (3.3-5.1) mmol/L Chloride 95 L (96-108) mmol/L Carbon Dioxide 34 H (22-29) mmol/L Anion Gap 14 (12-20) BUN 18 H (9-16) mg/dL Creatinine 1.23 (0.5-1.4) mg/dL Estim Creat Clear Calc 70.8 Estimated GFR 46 POC Glucose (60-115) mg/dL Random Glucose 101 (60-115) mg/dL Calcium 9.8 (8.4-10.2) mg/dL Total Bilirubin 0.3 (0.0-1.0) mg/dL AST 37 H (5-31) U/L ALT 18 (0-31) U/L Alkaline Phosphatase 53 (39-117) U/L Total Protein 8.0 (6.5-8.0) g/dL Albumin 4.9 (3.5-5.0) g/dL Urine Color Urine Appearance Urine pH (5.0-9.0) Ur Specific [place] (1.005-1.025) Urine Protein (Neg-Trace) mg/dL Urine Glucose (UA) (Negative) mg/dL Urine Ketones (Negative) mg/dL Urine Blood (Negative) Urine Nitrite (Negative) Ur Leukocyte Esterase (Negative) Urine RBC (0-2) /HPF Urine WBC (0-5) /HPF Ur Squamous Epith Cells (0-2) /HPF Urine Bacteria (None Seen) Hyaline Casts (0-2) /LPF Influenza Type A (PCR) NEGATIVE (Negative) Influenza Type B (PCR) NEGATIVE (Negative) RSV RNA Qual (PCR) NEGATIVE (Negative) SARS-CoV-2 RNA (RT-PCR) NEGATIVE (Negative) 08/27/25 08/27/25 Range/Units 20:43 22:11 WBC (4.8-10.8) X10*3/uL RBC (4.20-5.50) X10*6/uL Hgb (12.0-16.0) g/dl Hct (37.0-47.0) % MCV (80.0-98.0) fL MCH (27.0-33.0) pg MCHC (31.0-35.0) g/dl RDW (11.0-16.0) % Plt Count (160-400) X10*3/uL MPV (9.4-12.3) fL Immature Gran % (Auto) (0.0-0.4) % Neut % (Auto) (45-73) % Lymph % (Auto) (20-40) % [place] % (Auto) (2-11) % Eos % (Auto) (0-4) % Baso % (Auto) (0-2) % Lymph # (Auto) (1.2-4.9) X10*3/uL [place] # (Auto) (0.1-1.2) X10*3/uL Eos # (Auto) (0.0-0.4) X10*3/uL Baso # (Auto) (0.0-0.2) X10*3/uL Abs Immat Gran (auto) (0.00-0.03) X10*3/uL Absolute Neuts (auto) (2.0-8.3) x10*3/uL Absolute Nucleated RBC (0.0-0.012) X10*3/uL Nucleated RBC % (auto) (0.0-0.2) /100WBC Sodium (135-145) mmol/L Potassium (3.3-5.1) mmol/L Chloride (96-108) mmol/L Carbon Dioxide (22-29) mmol/L Anion Gap (12-20) BUN (9-16) mg/dL Creatinine (0.5-1.4) mg/dL Estim Creat Clear Calc Estimated GFR POC Glucose 90 (60-115) mg/dL Random Glucose (60-115) mg/dL Calcium (8.4-10.2) mg/dL Total Bilirubin (0.0-1.0) mg/dL AST (5-31) U/L ALT (0-31) U/L Alkaline Phosphatase (39-117) U/L Total Protein (6.5-8.0) g/dL Albumin (3.5-5.0) g/dL Urine Color Yellow Urine Appearance Cloudy Urine pH 5.5 (5.0-9.0) Ur Specific [place] 1.025 (1.005-1.025) Urine Protein 100 (2+) H (Neg-Trace) mg/dL Urine Glucose (UA) Negative (Negative) mg/dL Urine Ketones Negative (Negative) mg/dL Urine Blood Negative (Negative) Urine Nitrite Negative (Negative) Ur Leukocyte Esterase Negative (Negative) Urine RBC 0-2 (0-2) /HPF Urine WBC 6-10 H (0-5) /HPF Ur Squamous Epith Cells 11-20 (0-2) /HPF Urine Bacteria 4+ (None Seen) Hyaline Casts 0-2 (0-2) /LPF Influenza Type A (PCR) (Negative) Influenza Type B (PCR) (Negative) RSV RNA Qual (PCR) (Negative) SARS-CoV-2 RNA (RT-PCR) (Negative) Independent Interpretation I performed an independent interpretation of an: Plain X-Ray (Chest x-ray negative) and CT Scan (CT head negative) External Record Review External record reviewed: Inpatient record Chronic Conditions Hypothyroid Social Determinants Patient?s care significantly limited by Social Determinants of Health including: Problems related to primary support group Discharge Plan Discharge Clinical Impression: Upper respiratory infection, Dehydration, UTI (urinary tract infection) Patient Disposition: Home, Self-Care Instructions: Dehydration (ED), Urinary Tract Infection in Women (DC) Prescriptions: New cephalexin 500 mg capsule 500 mg PO TID 7 Days Qty: 21 0RF No Action oxycodone 5 mg tablet 5 mg PO Q8H PRN (Reason: pain) Qty: 10 0RF Rx Instructions: Partial Fill upon patient request. polyethylene glycol 3350 [Miralax] 17 gram/dose powder 17 g PO DAILY PRN (Reason: laxative effect) Qty: 238 0RF levothyroxine 200 mcg capsule 200 mcg PO DAILY Qty: 90 0RF Interventions: ED Discharge Assessment Last Done: 08/28/25 01:57 Discharge Date/Time: 08/28/25 01:10 Print Language: [place] Citizen
--- NOTE | 2025-08-27 15:14 | ECG_ITS ---
Test Reason : DIZZINESS Blood Pressure : */* mmHG Vent. Rate : 88 BPM Atrial Rate : 88 BPM P-R Int : 146 ms QRS Dur : 68 ms QT Int : 294 ms P-R-T Axes : 56 19 76 degrees QTcB Int : 355 ms Sinus rhythm with occasional Premature ventricular complexes Nonspecific T wave abnormality Abnormal ECG When compared with ECG of 01-Aug-2025 23:49, Premature ventricular complexes are now Present Referred By: Crys Cornell Electronically Signed By: DELBERT VILLAVICENCIO MD
[2025-08-27 16:40] LABS: Resp Syncy Virus RNA Qual PCR NEGATIVE (Negative); SARS COV2 PCR INHOUSE NEGATIVE (Negative)
[2025-08-27 17:30] LABS: MANUAL DIFF FLAG NO
[2025-08-27 17:47] LABS: Alanine Aminotransferase 18 U/L (0-31); Albumin Level 4.9 g/dL (3.5-5.0); Alkaline Phosphatase 53 U/L (39-117); Anion Gap 14 (12-20); Aspartate Amino Transferase 37 U/L (5-31); Blood Urea Nitrogen 18 mg/dL (9-16); Calcium 9.8 mg/dL (8.4-10.2); Carbon Dioxide 34 mmol/L (22-29); Chloride 95 mmol/L (96-108); Creatinine Clr Calc Pharmacy 70.8; Estimated Glomerular Filt Rate 46; Potassium 4.3 mmol/L (3.3-5.1); Sodium 139 mmol/L (135-145); Total Protein 8.0 g/dL (6.5-8.0)
[2025-08-27 18:01] LABS: Hematocrit 37.2 % (37.0-47.0); Hemoglobin 12.1 g/dl (12.0-16.0); Imm Gran Abs Auto 0.01 X10*3/uL (0.00-0.03); Imm Gran Pct Auto 0.2 % (0.0-0.4); Lymphocytes Absolute Auto 2.0 X10*3/uL (1.2-4.9); Mean Corpuscular HGB Conc 32.5 g/dl (31.0-35.0); Mean Corpuscular Hemoglobin 32.1 pg (27.0-33.0); Mean Corpuscular Volume 98.7 fL (80.0-98.0); NRBC Abs Auto 0.000 X10*3/uL (0.0-0.012); NRBC Pct Auto 0.0 /100WBC (0.0-0.2); Platelet Count 276 X10*3/uL (160-400); Red Blood Count 3.77 X10*6/uL (4.20-5.50); White Blood Count 6.0 X10*3/uL (4.8-10.8)
--- OUTSIDE RECORDS SUMMARY | 2025-08-27 19:19 | XMS_ITS | Encounter Summary ---
Author Organization [employer] Address [address] [place] [address] Care Team Providers Care Community Relations Manager Name Role Phone Unavailable Primary Care Provider Unavailabl e Encounter Details Date Type Department Care Team (Latest Contact Info) Description 08/24/2025 Travel Social History Tobacco Use Types Packs/Day Years Used Date Smoking Tobacco: Former Cigarettes Depression Answer Date Recorded Patient Health Questionnaire-9 Score 20 08/24/2025 Patient Health Questionnaire-9 Score 20 08/24/2025 Last PHQ-9: Questionnaire Data Not on file 1 10/25/2024 Housing Stability Answer Date Recorded What is your housing situation today? I do not have housing (Staying with others, in a hotel, in a long term, living outside on the street, on a [...] AM EST documented as of this encounter Functional Status * Over the [...] Author Not at all 08/24/2025 3:18 PM EST Haroldo Bravo LMHC * Patient Health Questionnaire-9 Score Answer Date of Assessment Author 20 08/24/2025 3:18 PM EST Haroldo Bravo LMHC * Over the last 2 weeks, how often have you been bothered by any of the following problems? Question Answer Date of Assessment Author Feeling nervous, anxious, or on edge 3 08/24/2025 3:18 PM EST Haroldo Paulson LMHC Not being able to stop or control worrying 3 08/24/2025 3:18 PM Haroldo Hidalgo LMHC Worrying too much about different things 3 08/24/2025 3:18 PM Haroldo Hidalgo LMHC Trouble relaxing 2 08/24/2025 3:18 PM EST Haroldo Mejia LMHC Being so restless that it is hard to sit still 3 08/24/2025 3:18 PM EST Haroldo Paulson LMHC Becoming easily annoyed or irritable 3 [...] Assessment Author Somewhat difficult 08/24/2025 3:18 PM EST Haroldo Gonzalez LMHC documented as of this encounter Plan of Treatment Upcoming Encounters Date Type Department Care Team (Late st Contact Info) Description 09/13/2025 2:45 PM EST Telemedicine [facility] MED[facility]INE [address] [place], [place] [phone] Fatmata Kelley MD [address] [place] [phone] 10/20/2025 1:45 PM EST Procedure Visit [facility] [address] [place] [phone] Fatmata Kelley MD [address] [place] [phone] documented as of this encounter Visit Diagnoses Not on filedocumented in this encounter Additional Health Concerns Assessment Noted Time PHQ-9 Depression Total Score: 20 025 3:18 PM EST documented as of this encounter
--- OUTSIDE RECORDS SUMMARY | 2025-08-27 19:20 | XMS_ITS | Encounter Summary ---
Author Organization [employer] Address [address] [place] [address] Care Team Providers Care Violin Mechanic Name Role Phone Fatmata Kelley MD Primary Care Provide r Encounter Details Date Type Department Care Team ([facility] Contact Info) Description 08/27/2025 Orders Only GENERIC EXTERNAL DATA DEPARTMENT Provider, Generic External Data Social History Tobacco Use Types Packs/Day Years Used Date Smoking Tobacco: Former Cigarettes Depression Answer Date Recorded Patient Health Questionnaire-9 Score 20 08/24/2025 Patient Health Questionnaire-9 Score 20 08/24/2025 Last PHQ-9: Questionnaire Data Not on file 1 10/25/2024 Housing Stability Answer Date Recorded What is your housing situation today? I do not have housing (Staying with others, in a hotel, in a fpc, living outside on the street, on a [...] AM EST documented as of this encounter Plan of Treatment Upcoming Encounters Date Type Department Care Team (Late st Contact Info) Description 09/13/2025 2:45 PM EST Telemedicine [facility] MEDICINE [address] [place] [address] [phone] Fatmata Kelley MD [address] [place] [phone] 10/20/2025 1:45 PM EST Procedure Visit [facility] [address] [place] [phone] Fatmata Kelley MD [address] [place], [place] [phone] documented as of this encounter Procedures Procedure Name Priority Date/Time Associated Diagnosis Comments CBC WITH AUTO DIFFERENTIAL Routine 08/27/2025 5:26 PM EST COMPREHENSIVE METABOLIC PANEL Routine 08/27/2025 5:25 PM EST SARS COV2/INFLUENZA A/B AND RSV RNA QL NAAT Routine 08/27/2025 3:43 PM EST documented in this encounter Results * (ABNORMAL) CBC auto differential (08/27/2025 5:26 PM EST) White Blood Count 6.0 4.8 - 10.8 X10*3/uL [facility] Red Blood Count 3.77(L) 4.20 - 5.50 X10*6/uL [facility] Hemoglobin 12.1 12.0 - 16.0 g/dl [facility] Hematocrit 37.2 37.0 - 47.0 % [facility] Mean Corpuscular Volume 98.7(H) 80.0 - 98.0 fL [facility] Mean Corpuscular Hemoglobin 32.1 27.0 - 33.0 pg [facility] Mean Corpuscular HGB Conc 32.5 31.0 - 35.0 g/dl [facility] Red Cell Distribution Width 14.6 11.0 - 16.0 % [facility] Platelet Count 276 160 - 400 X10*3/uL [facility] Mean Platelet Volume 11.1 9.4 - 12.3 fL [facility] Neutrophils Percent Auto 55.4 45 - 73 % [facility] Imm Gran Pct Auto 0.2 0.0 - 0.4 % [facility] Lymphocytes Percent Auto 33.9 20 - 40 % [facility] Monocytes Percent Auto 4.7 2 - 11 % [facility] Eosinophils Percent Auto 5.0(H) 0 - 4 % [facility] Basophils Percent Auto 0.8 0 - 2 % [facility] NRBC Pct Auto 0.0 0.0 - 0.2 /100WBC [facility] Neutrophils Absolute Auto 3.3 2.0 - 8.3 x10*3/uL [facility] Imm Gran Abs Auto 0.01 0.00 - 0.03 X10*3/uL [facility] Lymphocytes Absolute Auto 2.0 1.2 - 4.9 X10*3/uL [facility] Monocytes Absolute Auto 0.3 0.1 - 1.2 X10*3/uL [facility] Eosinophils Absolute Auto 0.3 0.0 - 0.4 X10*3/uL [facility] Basophils Absolute Auto 0.1 0.0 - 0.2 X10*3/uL [facility] NRBC Abs Auto 0.000 0.0 - 0.012 X10*3/uL [facility] 08/27/2025 5:26 PM EST 08/27/2025 5:28 PM EST us Generic External Data Provider LAB BLOOD ORDERAB LES Final Result [facility] [address] [place] [address] [phone] * (ABNORMAL) Comprehensive Metabolic Panel (08/27/2025 5:25 PM EST) Sodium 139 135 - 145 mmol/L [facility] Potassium 4.3 3.3 - 5.1 mmol/L [facility] Chloride 95(L) 96 - 108 mmol/L [facility] Carbon Dioxide 34(H) 22 - 29 mmol/L [facility] Anion Gap 14 12 - 20 [facility] Urea Nitrogen (BUN) 18(H) 9 - 16 mg/dL [facility] Creatinine, Serum 1.23 0.5 - 1.4 mg/dL [facility] Creatinine Clr Calc Pharmacy 70.8 [facility] Comment:Provided height and weight: 172.72 cm,116.2 kg.eGFR (calculated from the MDRD study equation) and eCrCl(calculated from the Cockcroft-Gault equation) are based ondifferent parameters and may not yield comparable results.If eCrCl result is absurd, please check patient'sheight/weight. Estimated Glomerular Filt Rate 46 [facility] Comment:Chronic Kidney Disea se: Estimated GFR < 60 mL/min/1.59l2Ahthwy Kidney Disease: Estimated GFR < 15 mL/min/1.73m2 Glucose 101 60 - 115 mg/dL [facility] Calcium 9.8 8.4 - 10.2 mg/dL [facility] Bilirubin, Total 0.3 0.0 - 1.0 mg/dL [facility] Aspartate Amino Transferase 37(H) 5 - 31 U/L [facility] Alanine Aminotransferase 18 0 - 31 U/L [facility] Total Protein 8.0 6.5 - 8.0 g/dL [facility] Albumin Level 4.9 3.5 - 5.0 g/dL [facility] Alkaline Phosphatase 53 39 - 117 U/L [facility] 08/27/2025 5:25 PM EST 08/27/2025 5:28 PM EST Generic External Data Provider LAB BLOOD ORDERAB LES Final Result Performing Organization Address [facility] Co de Phone Number [facility] [address] [place] [phone] SARS-CoV-2 RNA, Influenza A/B, and RSV RNA, Ql NAAT (08/27/2025 3:43 PM EST) Influenza A PCR NEGATIVE Negative [facility] Influenza B PCR NEGATIVE Negative [facility] Resp Syncy Virus RNA Qual PCR NEGATIVE Negative [facility] SARS COV2 PCR NEGATIVE Negative [facility] Comment:All test results mus t be correlated with clinical findings.Negative results do not preclude SARS-CoV2, influenza Avirus, influenza B virus and/or RSV infectionand should not be used as the sole basis for treatment orother patient management decisions. Negative results must becombined with clinical observations, patient history, andepidemiological information.This test has not been evaluated for monitoring treatment ofinfection.This test has been authorized by the FDA under an EmergencyUse Authorization (EUA) for use by authorized laboratories.Testing performed on the [employer] GeneXpert utilizingreal-time RT-PCR.All SARS CoV2 and positive influenza A/B results arereported to [facility]. 08/27/2025 3:43 PM EST 08/27/2025 3:52 PM EST Generic External Data Provider LAB MICROBIOLOGY - GENERAL ORDERABLES Final Result Performing Organization Address [facility] Co de Phone Number [facility] [address] [place] [phone] documented in this encounter Visit Diagnoses Not on filedocumented in this encounter Additional Health Concerns Assessment Noted Time PHQ-9 Depression Total Score: 20 025 3:18 PM EST documented as of this encounter Care Teams Violin Mechanic Relationship Specialty Start Date End Date Fatmata Kelley MD [address] [place] [phone] PCP - General Internal Medicine 08/25/25 documented as of this encounter
--- OUTSIDE RECORDS SUMMARY | 2025-08-27 19:20 | XMS_ITS | Encounter Summary ---
Author Organization [employer] Address [address] [place] [address] Care Team Providers Care Product Management Specialist Name Role Phone Unavailable Primary Care Provider Unavailabl e Reason for Visit * Reason Onset Date Comments chart prep 2025 Encounter Details Date Type Department Care Team ([facility] st Contact Info) Description 2025 Telephone [facility] [address] [place] [address] Fatmata Kelley MD [address] [place] [phone] chart prep Social History Tobacco Use Types Packs/Day Years Used Date Smoking Tobacco: Never Assessed Depression Answer Date Recorded Patient Health Questionnaire-9 Score 20 08/24/2025 Patient Health Questionnaire-9 Score 20 08/24/2025 Last PHQ-9: Questionnaire Data Not on file 1 10/25/2024 Housing Stability Answer Date Recorded What is your housing situation today? I do not have housing (Staying with others, in a hotel, in a detention, living outside on the street, on a [...] AM EST documented as of this encounter Miscellaneous Notes * Telephone Encounter - Kasey Soliman [place] - 2025 1:44 PM EST Chart Prep Labs: not applicable Images: not applicable Referrals: not applicable Vaccines due: Covid, Flu, PCV20, Hep B, Hep A, Zoster, and DTAP Screenings: colonoscopy, mammogram, and pap smear Overdue care gaps: SBIRT, SDOH, PHQ-9, COLLETTE-7, Disability screen, and Tobacco documented in this encounter Plan of Treatment Upcoming Encounters Date Type Department Care Team (Late st Contact Info) Description 09/13/2025 2:45 PM EST Telemedicine [facility]INE [address] [place] [phone] Fatmata Kelley MD [address] [place] [phone] 10/20/2025 1:45 PM EST Procedure Visit [facility] [address] [place] [address] [phone] Fatmata Kelley MD [address] [place] [phone] documented as of this encounter Visit Diagnoses Not on filedocumented in this encounter
--- OUTSIDE RECORDS SUMMARY | 2025-08-27 19:20 | XMS_ITS | Clinical Summary ---
Author Organization [employer] Address [address] [facility] [place] [address] Care Team Providers Care Waterproof Bag Sewer Name Role Phone Fatmata Kelley MD Primary Care Provide r Allergies No known active allergies Medications * This document contains information received from the source organization and may not represent a complete record from that organization. levothyroxine (Synthroid) 200 MCG tabletIndications: Acquired hypothyroidism Take 1 tablet (200 mcg) by mouth before breakfast. 30 tablet 2 08/24/2025 4:45 PM EST 5 026 Active amLODIPine (Norvasc) 10 MG tabletIndications: Primary hypertension Take 1 tablet (10 mg) by mouth Once per day. 30 tablet 11 08/24/2025 4:45 PM EST 5 026 Active albuterol 108 (90 Base) MCG/ACT inhalerIndications :Moderate persistent asthma without complication Inhale 2 puffs every 4 (four) hours if needed for wheezing. 18 g 08/24/2025 4:45 PM EST 5 026 Active fluticasone-salmet lauren (Advair) 230-21 MCG/ACT inhalerIndications :Moderate persistent asthma without complication Inhale 2 puffs in the morning and at bedtime. Rinse mouth with water after use to reduce aftertaste and incidence of candidiasis. Do not swallow. 12 g 11 08/24/2025 4:45 PM EST 5 026 Active traZODone (Desyrel) 100 MG tabletIndications: Depression with anxiety,Primary insomnia Take 1 tablet (100 mg) by mouth at bedtime. 30 tablet 2 08/24/2025 4:45 PM EST 5 026 Active loratadine (Claritin) 10 MG tabletIndications: Allergic reaction, initial encounter Take 1 tablet (10 mg) by mouth Once per day. 30 tablet 08/24/2025 4:45 PM EST 5 026 Active Active Problems Problem Noted Date Diagnosed Date Hypothyroidism 08/24/2025 Primary hypertension 08/24/2025 Moderate persistent asthma without complication 08/24/2025 CARMELITA (obstructive sleep apnea) 08/24/2025 Depression with anxiety 08/24/2025 Primary insomnia 08/24/2025 Blurred vision 08/24/2025 Allergic reaction 08/24/2025 PTSD (post-traumatic stress disorder) 08/24/2025 Severe depression (CMS/HCC) 08/24/2025 COLLETTE (generalized anxiety disorder) 08/24/2025 Unsheltered homelessness with safe environment f or sleeping 08/24/2025 Encounters * This document contains information received from the source organization and may not represent a complete record from that organization. Date Type Department Care Team Description 08/27/2025 Orders Only GENERIC EXTERNAL DATA DEPARTMENT Provider, Generic External Data 08/24/2025 2:15 PM EST Office Visit [facility] [address] [place] [phone] Fatmata Kelley MD Acquired hypothyroidism (Primary Dx); Dietary counseling; Exercise counseling; Primary hypertension; Moderate persistent asthma without complication; CARMELITA (obstructive sleep apnea); Depression with anxiety; Primary insomnia; Blurred vision; Allergic reaction, initial encounter; Encounter for immunization 08/24/2025 Travel 2025 Telephone [facility] [address] [place] [phone] Fatmata Kelley MD chart prep 08/15/[address] [phone] [facility] Unassigned Telephone Call from Last 3 Months Immunizations Immunization Administration Dates Next Due Influenza, IIV3, injectable 08/27/2024 Influenza, seasonal, injectable, preservative fr ee 08/24/2025,08/27/2024 Pneumococcal Conjugate PCV 20 08/24/2025 Social History Tobacco Use Types Packs/Day Years [...] with others, in a hotel, in a penitentiary, living outside on the street, on a [...] Don't know 08/17/2025 10 :29 AM EST Last Filed Vital Signs Vital Sign Reading [...] Mass Index 39.38 08/24/2025 2:04 PM EST Plan of Treatment Upcoming Encounters Date Type Department Care Team (Late st Contact Info) Description 09/13/2025 2:45 PM EST Telemedicine [facility] [address] [place] [address] [phone] Fatmata Kelley MD [address] [place], [place] [phone] 10/20/2025 1:45 PM EST Procedure Visit [address] [phone] Fatmata Kelley MD [address] [place], [place] [phone] Health Maintenance Due Date Last Done Comments CT Colonography 1972 Colonoscopy 1972 Colorectal Cancer Screening 1972 FIT DNA/Cologuard 1972 FIT 1972 FOBT 1972 HIV Screening 1972 Lipid Panel 1972 SDOH Screening 1972 Sigmoidoscopy 1972 Disability Screening 1972 Hepatitis C Screening 1990 DTaP/Tdap/Td Vaccines (1 - Tdap) 1991 Hepatitis B Vaccines (1 of 3 - 19+ 3-dose series) 1991 Pap Smear 1993 Cervical Cancer Screening 2002 HPV/Cotest 2002 Mammogram 2012 RSV Patients and Patients Aged 60 years or older (1 - Risk 50-74 years 1-dose series) 2022 Zoster Vaccines (1 of 2) 2022 COVID-19 Vaccine (1 - 2024-2 6 season) 2025 Depression Monitoring 02/22/2026 08/24/2025 , 08/24/2025 Alcohol/Substance Use Screening 08/24/2026 08/24/2025 Tobacco Screening 08/24/2026 08/24/2025 Influenza Vaccine Completed 08/24/2025, 08/27/2024, 08/27/2024 Pneumococcal Vaccine: 50+ Years Completed 08/24/2025 HIB Vaccines Aged Out No longer eligi ble based on patient's age to complete this topic HPV Vaccines Aged Out No longer eligi ble based on patient's age to complete this topic Hepatitis A Vaccines Aged Out No long er eligible based on patient's age to complete this topic IPV Vaccines Aged Out No longer eligi ble based on patient's age to complete this topic Meningococcal B Vaccine Aged Out No l onger eligible based on patient's age to complete this topic Meningococcal Vaccine Aged Out No misael javid eligible based on patient's age to complete this topic RSV under 20 months Aged Out No longe r eligible based on patient's age to complete this topic Rotavirus Vaccines Aged Out No longer eligible based on patient's age to complete this topic Procedures Procedure Name Priority Date/Time Associated Diagnosis Comments CBC WITH AUTO DIFFERENTIAL Routine 08/27/2025 5:26 PM EST COMPREHENSIVE METABOLIC PANEL Routine 08/27/2025 5:25 PM EST XR CHEST 2 VIEWS Routine 08/27/2025 4:11 PM EST SARS COV2/INFLUENZA A/B AND RSV RNA QL NAAT Routine 08/27/2025 3:43 PM EST from Last 3 Months Results * (ABNORMAL) CBC auto differential (08/27/2025 5:26 PM EST) White Blood Count 6.0 4.8 - 10.8 X10*3/uL [facility] Red Blood Count 3.77(L) 4.20 - 5.50 X10*6/uL [facility] Hemoglobin 12.1 12.0 - 16.0 g/dl [facility] Hematocrit 37.2 37.0 - 47.0 % [facility] Mean Corpuscular Volume 98.7(H) 80.0 - 98.0 fL [facility] Mean Corpuscular Hemoglobin 32.1 27.0 - 33.0 pg [facility] Mean Corpuscular HGB Conc 32.5 31.0 - 35.0 g/dl [facility] Red Cell Distribution Width 14.6 11.0 - 16.0 % [facility] Platelet Count 276 160 - 400 X10*3/uL [facility] Mean Platelet Volume 11.1 9.4 - 12.3 fL [facility] Neutrophils Percent Auto 55.4 45 - 73 % [facility] Imm Gran Pct Auto 0.2 0.0 - 0.4 % [facility] Lymphocytes Percent Auto 33.9 20 - 40 % [facility] Monocytes Percent Auto 4.7 2 - 11 % [facility] Eosinophils Percent Auto 5.0(H) 0 - 4 % [facility] Basophils Percent Auto 0.8 0 - 2 % [facility] NRBC Pct Auto 0.0 0.0 - 0.2 /100WBC [facility] Neutrophils Absolute Auto 3.3 2.0 - 8.3 x10*3/uL [facility] Imm Gran Abs Auto 0.01 0.00 - 0.03 X10*3/uL [facility] Lymphocytes Absolute Auto 2.0 1.2 - 4.9 X10*3/uL [facility] Monocytes Absolute Auto 0.3 0.1 - 1.2 X10*3/uL [facility] Eosinophils Absolute Auto 0.3 0.0 - 0.4 X10*3/uL [facility] Basophils Absolute Auto 0.1 0.0 - 0.2 X10*3/uL [facility] NRBC Abs Auto 0.000 0.0 - 0.012 X10*3/uL [facility] 08/27/2025 5:26 PM EST 08/27/2025 5:28 PM EST us Generic External Data Provider LAB BLOOD ORDERAB LES Final Result [facility] [address] [place] [phone] * (ABNORMAL) Comprehensive Metabolic Panel (08/27/2025 5:25 PM EST) Sodium 139 135 - 145 mmol/L [facility] Potassium 4.3 3.3 - 5.1 mmol/L [facility] Chloride 95(L) 96 - 108 mmol/L [facility] Carbon Dioxide 34(H) 22 - 29 mmol/L [facility] Anion Gap 14 12 - 20 [facility] Urea Nitrogen (BUN) 18(H) 9 - 16 mg/dL [facility] Creatinine, Serum 1.23 0.5 - 1.4 mg/dL [facility] Creatinine Clr Calc Pharmacy 70.8 [facility] Comment:Provided height and weight: 172.72 cm,116.2 kg.eGFR (calculated from the MDRD study equation) and eCrCl(calculated from the Cockcroft-Gault equation) are based ondifferent parameters and may not yield comparable results.If eCrCl result is absurd, please check patient'sheight/weight. Estimated Glomerular Filt Rate 46 [facility] Comment:Chronic Kidney Disea se: Estimated GFR < 60 mL/min/1.89n4Pyptmh Kidney Disease: Estimated GFR < 15 mL/min/1.73m2 Glucose 101 60 - 115 mg/dL [facility] Calcium 9.8 8.4 - 10.2 mg/dL [facility] Bilirubin, Total 0.3 0.0 - 1.0 mg/dL [facility] Aspartate Amino Transferase 37(H) 5 - 31 U/L [facility] Alanine Aminotransferase 18 0 - 31 U/L [facility] Total Protein 8.0 6.5 - 8.0 g/dL [facility] Albumin Level 4.9 3.5 - 5.0 g/dL [facility] Alkaline Phosphatase 53 39 - 117 U/L [facility] 08/27/2025 5:25 PM EST 08/27/2025 5:28 PM EST us Generic External Data Provider LAB BLOOD ORDERAB LES Final Result [facility] [address] [place] [phone] * XR Chest 2 Views (08/27/2025 4:11 PM EST) Anatomical Region Laterality Modality Chest Radiographic Marlys ging 08/27/2025 4:11 PM EST Narrative 08/27/2025 4:12 PM EST [address] [address] XRay Report Signed Patient: Serene Blackwood MR#: [id number] : 1970 Acct:[id number] Age/Sex: 55 / F ADM Date: 08/27/25 Loc: HO.ED Attending Dr: Ordering Physician: Crys Cornell PA-C Date of Service: 08/27/25 Procedure(s): XR chest 2V Accession Number(s): [id number] cc: Fatmata Kelley MD; Crys Cornell PA-C Reason for Exam: cough CLINICAL HISTORY: cough 1 view chest x-ray. Comparison: None Findings: No consolidation or effusion. Cardiac and mediastinal contours appear unremarkable. Bones unremarkable. Impression: 1. No acute pulmonary disease. This document has been electronically signed by: Alfonso Deng MD on 08/27/2025 16:11:02 Dictated By: Alfonso Deng MD Signed By: <Electronically signed by Alfonso Deng MD in OV> 08/27/25 1611 DD/ 1611 TD/TT: 08/27/25 161 [employer]: Procedure Note Donotuseinterpreter, Image - 08/27/[address] [address] XRay Report Signed Patient: Serene lBackwoodMR#: [id number] : 1970Acct:[id number] Age/Sex: 55 / FADM Date: 08/27/25 Loc: HO.ED Attending Dr: Ordering Physician: Crys Cornell PA-C Date of Service: 08/27/25 Procedure(s): XR chest 2V Accession Number(s): [id number] cc: Fatmata Kelley MD; Crys Cornell PA-C Reason for Exam: cough CLINICAL HISTORY: cough 1 view chest x-ray. Comparison: None Findings: No consolidation or effusion. Cardiac and mediastinal contours appear unremarkable. Bones unremarkable. Impression: 1. No acute pulmonary disease. This document has been electronically signed by: Alfonso Deng MD on 08/27/2025 16:11:02 Dictated By: Alfonso Deng MD Signed By: <Electronically signed by Alfonso Deng MD in OV> 08/27/251610 DD/ 10 TD/TT: 08/27/251610 [employer]: [facility] External Provider IMG XR PROCEDURES Final Result * SARS-CoV-2 RNA, Influenza A/B, and RSV RNA, Ql NAAT (08/27/2025 3:43 PM EST) Influenza A PCR NEGATIVE Negative [facility] Influenza B PCR NEGATIVE Negative [facility] Resp Syncy Virus RNA Qual PCR NEGATIVE Negative [facility] SARS COV2 PCR NEGATIVE Negative [facility] Comment:All test results mus t [...] use by authorized laboratories.Testing performed on the [employer] GeneXpert utilizingreal-time RT-PCR.All SARS CoV2 and positive influenza A/B results arereported to [facility]. 08/27/2025 3:43 PM EST 08/27/2025 3:52 PM EST us Generic External Data Provider LAB MICROBIOLOGY - GENERAL ORDERABLES Final Result [facility] [address] [place] [phone] from Last 3 Months Insurance [facility] Care Teams Waterproof Bag Sewer Relationship Specialty Start Date End Date Fatmata Kelley MD [address] [place] [phone] PCP - General Internal Medicine 08/25/25
[2025-08-27 20:47] LABS: Glucose, Whole Blood 90 mg/dL (60-115)
[2025-08-27 22:22] LABS: Appearance Urine Cloudy; Glucose Urine UA Negative (Negative); PH 5.5 (5.0-9.0); Specific Gravity - Urine 1.025 (1.005-1.025); UMIC TRIGGER UACC YES
[2025-08-27 22:24] LABS: UACC Culture Trigger YES
[2025-08-27 22:37] VITALS: BP 142/77; PULSE 70; RESP 16; TEMP 36.8; O2SAT 100
[2025-08-28 01:57] VITALS: BP 142/77; PULSE 70; RESP 16; TEMP 36.8; O2SAT 100
== END 2025-08-28 01:10 | disposition home or self-care (01) ==
PROVIDERS: Physician Assistant Medical; Emergency Provider Emergency Medicine Emergency Medical Services; PCP Internal Medicine
DX: J06.9 Acute upper respiratory infection, unspecified (principal); E86.0 Dehydration; N39.0 Urinary tract infection, site not specified
CPT/HCPCS: 36415; 70450; 71046; 80053; 81001; 82947; 85025; 87086; 87637; 93005; 96360; 96361; 99284

== ENCOUNTER → 2025-08-27 15:14 | Outpatient (BNV) | payer MEDICAID, SELFPAY | PROVIDERS: PCP Internal Medicine; Visit Provider Radiology Diagnostic Radiology | DX: R05.9 Cough, unspecified (principal) | CPT/HCPCS: 70450; 71046 ==

== ENCOUNTER → 2025-08-27 15:14 | Outpatient (BNV) | payer MEDICAID, SELFPAY | PROVIDERS: Emergency Provider Emergency Medicine Emergency Medical Services; PCP Internal Medicine; Visit Provider Internal Medicine Cardiovascular Disease | DX: R94.31 Abnormal electrocardiogram [ECG] [EKG] (principal); R42 Dizziness and giddiness | CPT/HCPCS: 93010 ==

== ENCOUNTER 2025-09-12 11:18 | Outpatient (REF) | payer MEDICAID, SELFPAY ==
--- OUTSIDE RECORDS SUMMARY | 2025-09-12 13:16 | XMS_ITS | Clinical Summary ---
Author Organization [employer] Address [address] [place] [address] Care Team Providers Care Harvesting Manager Name Role Phone Fatmata Kelley MD Primary [...] Data 08/24/2025 2:15 PM EST Office Visit [facility] [address] [place] [phone] Fatmata Kelley MD Acquired hypothyroidism (Primary Dx); Dietary counseling; Exercise counseling; Primary hypertension; Moderate persistent asthma without complication; CARMELITA (obstructive sleep apnea); Depression with anxiety; Primary insomnia; Blurred vision; Allergic reaction, initial encounter; Encounter for immunization 08/24/2025 Travel 2025 Telephone [facility] [address] [place] [phone] Fatmata Kelley MD chart prep 08/15/[address] [phone] [facility] Unassigned Telephone Call from Last 3 [...] Info) Description 09/13/2025 2:45 PM EST Telemedicine [facility] [address] [place] [phone] Fatmata Kelley MD [address] [place], [place] [phone] 10/20/2025 1:45 PM EST Procedure Visit [address] [phone] Fatmata Kelley MD [address] [place], [place] [phone] Health Maintenance Due Date Last Done Comments [...] Procedure Name Priority Date/Time Associated Diagnosis Comments CT HEAD WO CONTRAST Routine 08/27/2025 1 0:26 PM EST URINALYSIS, COMPLETE, WITH REFLEX TO CULTURE Routine 08/27/2025 10:11 PM EST CULTURE, URINE, ROUTINE Routine 08/27/2025 10:11 PM EST GLUCOSE, WHOLE BLOOD Routine 08/27/2025 8:43 PM EST CBC WITH AUTO DIFFERENTIAL Routine 08/27/2025 5:26 PM EST COMPREHENSIVE METABOLIC PANEL Routine 08/27/2025 5:25 PM EST XR CHEST 2 VIEWS Routine 08/27/2025 4:11 PM EST SARS COV2/INFLUENZA A/B AND RSV RNA QL NAAT Routine 08/27/2025 3:43 PM EST from Last 3 Months Results * CT Head w/o Contrast (08/27/2025 10:26 PM EST) Anatomical Region Laterality Modality Head, Neck Computed Tomogra phy 08/27/2025 10:2 6 PM EST Narrative 08/27/2025 10:28 PM EST [address] [address] [address] Scan Report Signed Patient: Serene Blackwood MR#: [id number] : 1970 Acct:[id number] Age/Sex: 55 / F ADM Date: 08/27/25 Loc: HO.ED Attending Dr: Ordering Physician: Ekaterina Mancia MD Date of Service: 08/27/25 Procedure(s): CT head/brain wo IV con Accession Number(s): [id number] cc: Fatmata Kelley MD; Ekaterina Mancia MD Report Number: [id number]: Total DLP = 784.00 mGy-cm Reason for Exam: dizzy CLINICAL HISTORY: dizzy CT head without contrast Comparison: None provided Findings: No intra-axial mass, midline shift, hydrocephalus, or acute hemorrhage. No significant atrophy-like change or white matter disease. There is no sinus or mastoid fluid. The orbits are unremarkable. There is no acute fracture. IMPRESSION: 1. No acute intracranial findings. This document has been electronically signed by: Joel Jha MD on 08/27/2025 22:26:36 Dictated By: Joel Jha MD Signed By: <Electronically signed by Joel Jha MD in OV> 08/27/252226 DD/ 25 TD/TT: 08/27/252225 Crab Catcher: Procedure Note Donotuseinterpreter, Image - 08/27/[address] [address] [address] Scan Report Signed Patient: Serene BlackwoodMR#: [id number] : 1970Acct:[id number] Age/Sex: 55 / FADM Date: 08/27/25 Loc: HO.ED Attending Dr: Ordering Physician: Ekaterina Mancia MD Date of Service: 08/27/25 Procedure(s): CT head/brain wo IV con Accession Number(s): [id number] cc: Fatmata Kelley MD; Ekaterina Mancia MD Report Number: [id number]: Total DLP = 784.00 mGy-cm Reason for Exam: dizzy CLINICAL HISTORY: dizzy CT head without contrast Comparison: None provided Findings: No intra-axial mass, midline shift, hydrocephalus, or acute hemorrhage. No significant atrophy-like change or white matter disease. There is no sinus or mastoid fluid. The orbits are unremarkable. There is no acute fracture. IMPRESSION: 1. No acute intracranial findings. This document has been electronically signed by: Joel Jha MD on 08/27/2025 22:26:36 Dictated By: Joel Jha MD Signed By: <Electronically signed by Joel Jha MD in OV> 08/27/252226 DD/ 25 TD/TT: 08/27/252225 Crab Catcher: [facility] External Provider IMG CT PROCEDURES Edited Result - Final * (ABNORMAL) Urinalysis, Complete, with Reflex to Culture (08/27/2025 10:11 PM EST) Color Urine Yellow [facility] Appearance Urine Cloudy [facility] PH 5.5 5.0 - 9.0 [facility] Glucose Urine UA Negative Negative mg/dL [facility] Urine Blood Negative Negative [facility] Specific [place] - Urine 1.025 1.005 - 1.025 [facility] Urine Protein 100 (2+)(A) Neg-Trace mg/dL [facility] Urine Ketones Negative Negative mg/dL [facility] Nitrite Urine Negative Negative [facility] Leukocyte Esterase Urine Negative Negative [facility] RBC Urine 0-2 0 - 2 /HPF [facility] Urine WBC 6-10(A) 0 - 5 /HPF [facility] Urine Squamous Epithelial Cell 11-20 0 - 2 /HPF [facility] Urine Bacteria 4+ None Seen [facility] Hyaline Casts, Urine 0-2 0 - 2 /LPF [facility] 08/27/2025 10:1 1 PM EST 08/27/2025 10:19 PM EST Narrative [facility] - 08/27/2025 10:25 PM EST Urine, Clean Catch us Generic External Data Provider LAB URINE ORDERAB LES Final Result Performing Organization Address City/[facility]/ZIP Co de Phone Number [facility] [address] [place] [phone] * Culture, Urine, Routine (08/27/2025 10:11 PM EST) Urine Urine specimen obtained by clean catch procedure / Unknown 08/27/2025 10:11 PM EST 08/27/2025 10:25 PM EST Comment:UACC Narrative [facility] - 08/29/2025 10:18 AM EST Urine Culture Report Result Urine Culture 50,000 to 100,000 cfu/ml Urine Culture Mixed bacterial helena characteristic of Urine Culture urogenital contamination. Specimen Source: Urine clean catch us Generic External Data Provider LAB MICROBIOLOGY - GENERAL ORDERABLES Final Result Performing Organization Address [facility] Co de Phone Number [facility] [address] [place] [phone] * Glucose, Whole Blood (08/27/2025 8:43 PM EST) Glucose, Whole Blood 90 60 - 115 mg/dL [facility] Comment:METER #: [id number] 08/27/2025 8:43 PM EST 08/27/2025 8:47 PM EST us Generic External Data Provider LAB BLOOD ORDERAB LES Final Result Performing Organization Address [facility] Co de Phone Number [facility] [address] [place] [phone] * (ABNORMAL) CBC auto differential (08/27/2025 5:26 PM EST) White Blood Count 6.0 4.8 - 10.8 X10*3/uL [facility] Red Blood Count 3.77(L) 4.20 - 5.50 X10*6/uL [facility] Hemoglobin 12.1 12.0 - 16.0 g/dl [facility] Hematocrit 37.2 37.0 - 47.0 % [facility] Mean Corpuscular Volume 98.7(H) 80.0 - 98.0 fL [facility] Mean Corpuscular Hemoglobin 32.1 27.0 - 33.0 pg [facility] Mean Corpuscular HGB Conc 32.5 31.0 - 35.0 g/dl [facility] Red Cell Distribution Width 14.6 11.0 - 16.0 % [facility] Platelet Count 276 160 - 400 X10*3/uL [facility] Mean Platelet Volume 11.1 9.4 - 12.3 fL [facility] Neutrophils Percent Auto 55.4 45 - 73 % [facility] Imm Gran Pct Auto 0.2 0.0 - 0.4 % [facility] Lymphocytes Percent Auto 33.9 20 - 40 % [facility] Monocytes Percent Auto 4.7 2 - 11 % [facility] Eosinophils Percent Auto 5.0(H) 0 - 4 % [facility] Basophils Percent Auto 0.8 0 - 2 % [facility] NRBC Pct Auto 0.0 0.0 - 0.2 /100WBC [facility] Neutrophils Absolute Auto 3.3 2.0 - 8.3 x10*3/uL [facility] Imm Gran Abs Auto 0.01 0.00 - 0.03 X10*3/uL [facility] Lymphocytes Absolute Auto 2.0 1.2 - 4.9 X10*3/uL [facility] Monocytes Absolute Auto 0.3 0.1 - 1.2 X10*3/uL [facility] Eosinophils Absolute Auto 0.3 0.0 - 0.4 X10*3/uL [facility] Basophils Absolute Auto 0.1 0.0 - 0.2 X10*3/uL [facility] NRBC Abs Auto 0.000 0.0 - 0.012 X10*3/uL [facility] 08/27/2025 5:26 PM EST 08/27/2025 5:28 PM EST us Generic External Data Provider LAB BLOOD ORDERAB LES Final Result [facility] [address] [place] [phone] * (ABNORMAL) Comprehensive Metabolic Panel (08/27/2025 5:25 PM EST) Sodium 139 135 - 145 mmol/L [facility] Potassium 4.3 3.3 - 5.1 mmol/L [facility] Chloride 95(L) 96 - 108 mmol/L [facility] Carbon Dioxide 34(H) 22 - 29 mmol/L [facility] Anion Gap 14 12 - 20 [facility] Urea Nitrogen (BUN) 18(H) 9 - 16 mg/dL [facility] Creatinine, Serum 1.23 0.5 - 1.4 mg/dL [facility] Creatinine Clr Calc Pharmacy 70.8 [facility] Comment:Provided height and weight: 172.72 cm,116.2 kg.eGFR (calculated from the MDRD study equation) and eCrCl(calculated from the Cockcroft-Gault equation) are based ondifferent parameters and may not yield comparable results.If eCrCl result is absurd, please check patient'sheight/weight. Estimated Glomerular Filt Rate 46 [facility] Comment:Chronic Kidney Disea se: Estimated GFR < 60 mL/min/1.28e6Unqvlq Kidney Disease: Estimated GFR < 15 mL/min/1.73m2 Glucose 101 60 - 115 mg/dL [facility] Calcium 9.8 8.4 - 10.2 mg/dL [facility] Bilirubin, Total 0.3 0.0 - 1.0 mg/dL [facility] Aspartate Amino Transferase 37(H) 5 - 31 U/L [facility] Alanine Aminotransferase 18 0 - 31 U/L [facility] Total Protein 8.0 6.5 - 8.0 g/dL [facility] Albumin Level 4.9 3.5 - 5.0 g/dL [facility] Alkaline Phosphatase 53 39 - 117 U/L [facility] 08/27/2025 5:25 PM EST 08/27/2025 5:28 PM EST us Generic External Data Provider LAB BLOOD ORDERAB LES Final Result [facility] [address] [place] [phone] * XR Chest 2 Views (08/27/2025 4:11 PM EST) Anatomical Region Laterality Modality Chest Radiographic Marlys ging 08/27/2025 4:11 PM EST Narrative 08/27/2025 4:12 PM EST [address] [address] XRay Report Signed Patient: Serene Blackwood MR#: [id number] : 1970 Acct:[id number] Age/Sex: 55 / F ADM Date: 08/27/25 Loc: .ED Attending Dr: Ordering Physician: Crys Cornell PA-C Date of Service: 08/27/25 Procedure(s): XR chest 2V Accession Number(s): [id number] cc: Fatmata Kelley MD; Crys Cornell PA-C [...] by Alfonso Deng MD in OV> 08/27/25 161 DD/ 10 TD/TT: 08/27/251610 Crab Catcher: Procedure Note Donotuseinterpreter, Image - 08/27/[address] [address] XRay Report Signed Patient: Serene BlackwoodMR#: [id number] : 1970Acct:[id number] Age/Sex: 55 / FADM Date: 08/27/25 Loc: HO.ED Attending Dr: Ordering Physician: Crys Cornell PA-C Date of Service: 08/27/25 Procedure(s): XR chest 2V Accession Number(s): [id number] cc: Fatmata Kelley MD; Crys Cornell PA-C [...] in OV> 08/27/251610 DD/ 10 TD/TT: 08/27/251610 Crab Catcher: [facility] External Provider IMG XR PROCEDURES Final Result * SARS-CoV-2 RNA, Influenza A/B, and RSV RNA, Ql NAAT (08/27/2025 3:43 PM EST) Influenza A PCR NEGATIVE Negative [facility] Influenza B PCR NEGATIVE Negative [facility] Resp Syncy Virus RNA Qual PCR NEGATIVE Negative [facility] SARS COV2 PCR NEGATIVE Negative [facility] Comment:All test results mus t be [...] use by authorized laboratories.Testing performed on the [employer] GeneXpert utilizingreal-time RT-PCR.All SARS CoV2 and positive influenza A/B results arereported to [facility]. 08/27/2025 3:43 PM EST 08/27/2025 3:52 PM EST us Generic External Data Provider LAB MICROBIOLOGY - GENERAL ORDERABLES Final Result [facility] [address] [place] [phone] from Last 3 Months Insurance [employer] Care Teams Harvesting Manager Relationship Specialty Start Date End Date Fatmata Kelley MD [address] [place] [phone] PCP - General Internal Medicine 08/25/25
[2025-09-12 13:52] LABS: MANUAL DIFF FLAG NO
[2025-09-12 13:59] LABS: Hemoglobin 12.0 g/dl (12.0-16.0); Red Blood Count 3.88 X10*6/uL (4.20-5.50); White Blood Count 6.0 X10*3/uL (4.8-10.8)
[2025-09-12 14:00] LABS: Hematocrit 38.3 % (37.0-47.0); Imm Gran Abs Auto 0.01 X10*3/uL (0.00-0.03); Imm Gran Pct Auto 0.2 % (0.0-0.4); Lymphocytes Absolute Auto 2.0 X10*3/uL (1.2-4.9); Mean Corpuscular HGB Conc 31.3 g/dl (31.0-35.0); Mean Corpuscular Hemoglobin 30.9 pg (27.0-33.0); Mean Corpuscular Volume 98.7 fL (80.0-98.0); NRBC Abs Auto 0.000 X10*3/uL (0.0-0.012); NRBC Pct Auto 0.0 /100WBC (0.0-0.2); Platelet Count 252 X10*3/uL (160-400)
[2025-09-12 14:42] LABS: Alanine Aminotransferase 12 U/L (0-31); Albumin Level 4.6 g/dL (3.5-5.0); Alkaline Phosphatase 54 U/L (39-117); Anion Gap 11 (12-20); Aspartate Amino Transferase 30 U/L (5-31); Blood Urea Nitrogen 16 mg/dL (9-16); Calcium 9.6 mg/dL (8.4-10.2); Carbon Dioxide 37 mmol/L (22-29); Chloride 98 mmol/L (96-108); Cholesterol 206 mg/dL (<200); Estimated Glomerular Filt Rate 59; HDL Cholesterol 62 mg/dL (>40); Potassium 4.3 mmol/L (3.3-5.1); Sodium 142 mmol/L (135-145); Total Protein 7.7 g/dL (6.5-8.0); Triglycerides 125 mg/dL (<150)
[2025-09-12 15:12] LABS: Free T4 (Free Thyroxine) 0.61 ng/dL (0.71-1.85)
[2025-09-13 08:10] LABS: HIV Num 1 0.06 S/CO (0.00-0.99); ~HepC Num1 0.11 S/CO (0.00-0.79); ~Hepatitis C Antibody Nonreactive (Nonreactive)
== END 2025-09-12 11:19 | disposition home or self-care (01) ==
LOC: HO.HHCL 11:18
PROVIDERS: PCP Internal Medicine; Visit Provider Internal Medicine
DX: Z11.4 Encounter for screening for human immunodeficiency virus [HIV] (principal); Z11.59 Encounter for screening for other viral diseases; E03.9 Hypothyroidism, unspecified; I10 Essential (primary) hypertension
CPT/HCPCS: 36415; 80053; 80061; 82306; 83036; 84439; 84443; 85025; 86803; 87389